=== PATIENT | female | born 1950 | race Caucasian/White ===

== ENCOUNTER 2020-03-07 12:09 | Outpatient (REF) | payer OTHER, SELFPAY ==
[2020-03-07 12:43] LABS: Glucose Urine UA NEG (NEG); Leukocyte Esterase Urine NEG (NEG); Nitrite Urine NEG (NEG); PH 6.5 (5.0-8.0); Specific Gravity - Urine <= 1.005 (1.005-1.025); Urine Blood NEG (NEG); Urine Ketones NEG (NEG); Urine Protein NEG (NEG-TRACE)
[2020-03-07 12:44] LABS: Appearance Urine HAZY; Color Urine YELLOW
[2020-03-07 13:04] LABS: RBC Urine 0 /HPF (0); Squamous Epithelial Cell Urine 1+ /LPF; WBC Urine 0 /HPF (0-4)
[2020-03-07 13:37] LABS: Basophils Percent Auto 0.2 % (0-2); Eosinophils Absolute Auto 0.1 X10*3/uL (0.0-0.4); Eosinophils Percent Auto 1.2 % (0-4); Hematocrit 37.7 % (37-47); Hemoglobin 12.2 g/dl (12.0-16.0); Lymphocytes Absolute Auto 0.6 X10*3/uL (1.2-4.9); MANUAL DIFF FLAG SCAN; Mean Corpuscular HGB Conc 32.4 g/dl (31.0-35.0); Mean Corpuscular Hemoglobin 29.4 pg (27.0-33.0); Mean Corpuscular Volume 90.8 fL (80-98); Mean Platelet Volume 10.2 fL (9.4-12.3); Monocytes Absolute Auto 0.3 X10*3/uL (0.1-1.2); Monocytes Percent Auto 8.2 % (2-11); Neutrophils Absolute Auto 3.2 X10*3/uL (2.0-8.3); Neutrophils Percent Auto 76.4 % (45-73); Platelet Count 240 X10*3/uL (160-400); Red Blood Count 4.15 X10*6/uL (4.20-5.50); Red Cell Distribution Width 13.5 % (11.0-16.0); SCAN SMEAR FLAG 1; White Blood Count 4.1 X10*3/uL (4.8-10.8)
[2020-03-07 14:22] LABS: Alanine Aminotransferase 13 U/L (0-31); Albumin Level 4.4 g/dL (3.5-5.0); Alkaline Phosphatase 65 U/L (39-117); Anion Gap 12 (12-20); Aspartate Amino Transferase 17 U/L (5-31); Bilirubin Total 0.5 mg/dL (0.0-1.0); Blood Urea Nitrogen 15 mg/dL (9-16); Carbon Dioxide 28 mmol/L (22-29); Chloride 101 mmol/L (96-108); Estimated Glomerular Filt Rate > 60; Glucose Random 95 mg/dL (60-115); Potassium 4.6 mmol/l (3.3-5.1); Sodium 136 mmol/L (135-145); Total Protein 6.8 g/dL (6.5-8.0)
[2020-03-07 15:20] LABS: SLIDE REVIEW VERIFIED
[2020-03-08 16:03] LABS: Calcium (PTHI) 9.3 mg/dL (8.6-10.4); PTHI 45 pg/mL (14-64)
== END 2020-03-07 12:10 | disposition home or self-care (01) ==
LOC: HO.LAB 12:09
PROVIDERS: PCP Internal Medicine; Visit Provider Internal Medicine Nephrology
DX: I12.9 Hypertensive chronic kidney disease with stage 1 through stage 4 chronic kidney disease, or unspecified chronic kidney disease (principal); N18.2 Chronic kidney disease, stage 2 (mild)
CPT/HCPCS: 36415; 80053; 81001; 83970; 85025

== ENCOUNTER 2020-04-12 07:51 | Outpatient (REF) | payer OTHER, SELFPAY ==
--- NOTE | 2020-04-12 07:57 | MM_ITS ---
EXAMINATION: BONE DENSITOMETRY CLINICAL INDICATION: Menopausal. COMPARISON: Previous BD dated 04/01/2018 and baseline BD dated 02/16/2008. TECHNIQUE: Using a [employer] DXA System (software version: 13.1) manufactured by [employer], dual-energy x-ray absorptiometry was performed of the lumbar spine and left hip. The images are of good technical quality. Summary results are attached. FINDINGS: AP SPINE L1-L4: Current: BMD 1.334 g/cm2, Z-score 3.0, T-score 1.3, normal, 0.7% decrease from previous, 2.1% decrease from baseline (<5% change is not significant). Prior: BMD 1.343 g/cm2. Baseline: BMD 1.363 g/cm2. LEFT FEMUR, NECK: Current: BMD 1.122 g/cm2, Z-score 2.3, T-score 0.6, normal. Prior: BMD 1.104 g/cm2. Baseline: BMD 1.171 g/cm2. LEFT FEMUR, TOTAL: Current: BMD 1.175 g/cm2, Z-score 2.8, T-score 1.3, normal, 1.0% increase from previous, 4.7% decrease from baseline (<5% change is not significant). Prior: BMD 1.163 g/cm2. Baseline: BMD 1.233 g/cm2. IDENTIFIED RISK FACTORS: Menopause, hysterectomy, bilateral oophorectomy, family history (parental hip fracture). HISTORY OF FRACTURE: None listed. MEDICATIONS: Calcium supplements and multivitamins. MM/XR DEXA axial skeleton IMPRESSION: 1. DIAGNOSIS: Normal bone density based on the lowest T-score value of 0.6 in the femoral neck applying World Health Organization criteria. 2. 10-YEAR FRACTURE RISK PREDICTION, FRAX: Major osteoporotic fracture (clinical spine, forearm, hip or shoulder) 10.6%. Hip fracture 0.3%. 3. Treatment Recommendations: NOF guidelines recommend consideration for treatment in postmenopausal women and men age 50 and older presenting with the following: -A hip or vertebral (clinical or morphometric) fracture. -T-score less than or equal to -2.5 at the femoral neck or spine after appropriate evaluation to exclude secondary causes. -Low bone mass at the hip or spine and a 10-year fracture probability by FRAX of greater than or equal to 3% for hip fracture or greater than or equal to 20% for major osteoporotic fracture based on the [place] adapted WHO algorithm. 4. Other Recommendations: All treatment decisions require clinical judgment and consideration of individual patient factors, including patient preferences, comorbidities, previous drug use, risk factors not captured in the FRAX model (e.g. frailty, falls, vitamin D deficiency, increased bone turnover, interval significant decline in bone density) and possible under or overestimation of fracture risk by FRAX. FUTURE SCAN RECOMMENDATION: People with diagnosed cases of osteoporosis or at high risk for fracture should have regular bone mineral density tests. For patients eligible for Medicare, routine testing is allowed once every 2 years. The testing frequency can be increased to one year for patients who have rapidly progressing disease, those who are receiving or discontinuing medical therapy to restore bone mass, or have additional risk factors.
--- NOTE | 2020-04-12 07:57 | MM_ITS ---
EXAMINATION: MM SCREENING DIGITAL BREAST TOMOSYNTHESIS, BILATERAL CLINICAL INFORMATION: Left breast cancer 2001 status post lumpectomy. Due for yearly exam. COMPARISON: Mammography: 04/07/2019, 04/01/2018, 03/30/2017 TECHNIQUE: Digital breast tomosynthesis is performed in both the craniocaudal and mediolateral oblique views along with computer-aided detection (CAD). Synthesized 2D images are generated from the tomosynthesis. Additional exaggerated left CC view is provided. FINDINGS: The breasts are heterogeneously dense, which may obscure small masses (ACR BI-RADS breast composition Category c). There is fibronodular parenchymal pattern similar to prior studies. There is no developing density or interval mass or architectural abnormality. Again, there are post therapy changes on left with mild reduced breast size and stable scarring. There are no abnormal calcifications. No significant changes. MM/MM tomosynthesis screening BI IMPRESSION: No mammographic evidence of malignancy. Post therapy changes left breast, stable. ASSESSMENT: BI-RADS 2: Benign RECOMMENDATION: Routine annual mammography screening. This patient's information was entered into a reminder system with a target due date for their next mammogram.
== END 2020-04-12 07:52 | disposition home or self-care (01) ==
LOC: HO.MAMMO 07:51
PROVIDERS: PCP Internal Medicine; Visit Provider Internal Medicine
DX: Z13.820 Encounter for screening for osteoporosis (principal); N95.9 Unspecified menopausal and perimenopausal disorder; Z90.710 Acquired absence of both cervix and uterus; Z90.722 Acquired absence of ovaries, bilateral; Z12.31 Encounter for screening mammogram for malignant neoplasm of breast; Z85.3 Personal history of malignant neoplasm of breast
CPT/HCPCS: 77063; 77067; 77080

== ENCOUNTER 2020-05-28 09:21 | Outpatient (REF) | payer OTHER, SELFPAY ==
[2020-05-28 10:03] LABS: MANUAL DIFF FLAG NO
[2020-05-28 10:10] LABS: Basophils Percent Auto 0.3 % (0-2); Eosinophils Absolute Auto 0.1 X10*3/uL (0.0-0.4); Eosinophils Percent Auto 1.8 % (0-4); Hematocrit 38.4 % (37-47); Hemoglobin 12.8 g/dl (12.0-16.0); Imm Gran Abs Auto 0.01 X10*3/uL (0.00-0.03); Imm Gran Pct Auto 0.3 % (0.0-0.4); Lymphocytes Absolute Auto 0.8 X10*3/uL (1.2-4.9); Lymphocytes Percent Auto 22.9 % (20-40); Mean Corpuscular HGB Conc 33.3 g/dl (31.0-35.0); Mean Corpuscular Hemoglobin 29.2 pg (27.0-33.0); Mean Corpuscular Volume 87.5 fL (80-98); Mean Platelet Volume 9.8 fL (9.4-12.3); Monocytes Absolute Auto 0.3 X10*3/uL (0.1-1.2); Monocytes Percent Auto 8.4 % (2-11); Neutrophils Absolute Auto 2.2 X10*3/uL (2.0-8.3); Neutrophils Percent Auto 66.3 % (45-73); Platelet Count 246 X10*3/uL (160-400); Red Blood Count 4.39 X10*6/uL (4.20-5.50); White Blood Count 3.3 X10*3/uL (4.8-10.8)
[2020-05-28 10:37] LABS: Alanine Aminotransferase 17 U/L (0-31); Albumin Level 4.5 g/dL (3.5-5.0); Alkaline Phosphatase 79 U/L (39-117); Anion Gap 12 (12-20); Aspartate Amino Transferase 22 U/L (5-31); Bilirubin Total 0.6 mg/dL (0.0-1.0); Blood Urea Nitrogen 9 mg/dL (9-16); Calcium 9.4 mg/dL (8.4-10.2); Carbon Dioxide 30 mmol/L (22-29); Chloride 102 mmol/L (96-108); Cholesterol 180 mg/dL; Estimated Glomerular Filt Rate > 60; Glucose Random 94 mg/dL (60-115); HDL Cholesterol 75 mg/dL; LDL Cholesterol Calculated 94 mg/dl; Potassium 4.2 mmol/L (3.3-5.1); Sodium 140 mmol/L (135-145); Triglycerides 56 mg/dL
[2020-05-28 10:59] LABS: Free T4 (Free Thyroxine) 0.91 ng/dL (0.71-1.85); Thyroid Stimulating Hormone 1.13 uIU/mL (0.32-4.0); Vitamin D 25-OH Total 26.4 ng/mL (>30)
[2020-05-28 11:09] LABS: Folate 15.2 ng/mL (> or = 4.0); Vitamin B12 244 pg/mL (200-900)
== END 2020-05-28 09:22 | disposition home or self-care (01) ==
LOC: HO.LAB 09:21
PROVIDERS: PCP Internal Medicine; Visit Provider Internal Medicine
DX: I10 Essential (primary) hypertension (principal); E78.00 Pure hypercholesterolemia, unspecified
CPT/HCPCS: 36415; 80053; 80061; 82306; 82607; 82746; 84439; 84443; 85025

== ENCOUNTER 2021-04-18 08:47 | Outpatient (REF) | payer OTHER, SELFPAY ==
--- NOTE | ~2021-04-18 | MM_ITS ---
EXAMINATION: MM SCREENING DIGITAL BREAST TOMOSYNTHESIS, BILATERAL CLINICAL INFORMATION: Status post left breast lumpectomy deep upper outer aspect. COMPARISON: Mammography: 04/12/2020 and studies dating back to 02/07/2012 TECHNIQUE: Digital breast tomosynthesis is performed in both the craniocaudal and mediolateral oblique views along with computer-aided detection (CAD). Synthesized 2-D images are generated from the tomosynthesis. Additional exaggerated craniocaudal view performed. FINDINGS: The breasts are heterogeneously dense, which may obscure small masses (ACR BI-RADS breast composition Category c). There is a stable parenchymal pattern of the left breast with postsurgical change and no evidence of new abnormal dominant mass or suspicious grouping of microcalcifications. Within the superior central aspect of the right breast, there is a new grouping of calcifications for which spot magnification views are recommended. MM/MM tomosynthesis screening BI IMPRESSION: New calcifications superior central aspect of the right breast for which spot magnification views in craniocaudal and 90-degree mediolateral views is recommended. ASSESSMENT: BI-RADS 0: Incomplete - Need Additional Imaging Evaluation. RECOMMENDATION: 1. Additional views of the right breast. 2. Targeted ultrasound if warranted after review of the additional views. 3. Radiology department staff will contact the patient for additional imaging.
== END 2021-04-18 08:48 | disposition home or self-care (01) ==
LOC: HO.MAMMO 08:47
PROVIDERS: PCP Internal Medicine; Visit Provider Internal Medicine
DX: Z12.31 Encounter for screening mammogram for malignant neoplasm of breast (principal)
CPT/HCPCS: 77063; 77067

== ENCOUNTER 2021-04-24 08:47 | Outpatient (REF) | payer OTHER, SELFPAY ==
--- NOTE | ~2021-04-24 | MM_ITS ---
EXAMINATION: MM DIAGNOSTIC DIGITAL MAMMOGRAPHY, RIGHT CLINICAL INFORMATION: Recall from screening for new tightly grouped calcification central right breast mid depth. History contralateral left breast cancer status post lumpectomy 2000. COMPARISON: Mammography: 04/18/2021, 04/12/2020, 04/07/2019 TECHNIQUE: Digital mammography is performed in the following views: Magnification CC, magnification ML FINDINGS: The breasts are heterogeneously dense, which may obscure small masses (ACR BI-RADS breast composition Category c). The additional magnification views demonstrate very tight group of relatively coarse benign-appearing calcifications central right breast mid depth, approximately 5 in number. Calcifications will be reassessed again in 6 months to include magnification views. Results are discussed with the patient at time of visit. MM/MM added views RT IMPRESSION: Tight group of benign-appearing calcifications central right breast mid depth. ASSESSMENT: BI-RADS 3: Probably Benign RECOMMENDATION: Diagnostic right mammography in 6 months. This patient's information was entered into a reminder system with a target due date for their next mammogram.
== END 2021-04-24 08:48 | disposition home or self-care (01) ==
LOC: HO.MAMMO 08:47
PROVIDERS: PCP Internal Medicine; Visit Provider Internal Medicine
DX: R92.1 Mammographic calcification found on diagnostic imaging of breast (principal)
CPT/HCPCS: 77065

== ENCOUNTER 2021-05-06 08:41 | Outpatient (REF) | payer OTHER, SELFPAY ==
[2021-05-06 09:09] LABS: MANUAL DIFF FLAG NO
[2021-05-06 09:32] LABS: Basophils Percent Auto 0.3 % (0-2); Eosinophils Percent Auto 1.3 % (0-4); Hematocrit 37.4 % (37.0-47.0); Hemoglobin 12.5 g/dl (12.0-16.0); Imm Gran Abs Auto 0.01 X10*3/uL (0.00-0.03); Imm Gran Pct Auto 0.3 % (0.0-0.4); Immature Retic Fraction 5.8 % (3.0-15.9); Lymphocytes Absolute Auto 0.6 X10*3/uL (1.2-4.9); Mean Corpuscular HGB Conc 33.4 g/dl (31.0-35.0); Mean Corpuscular Hemoglobin 28.5 pg (27.0-33.0); Mean Corpuscular Volume 85.2 fL (80.0-98.0); Mean Platelet Volume 9.8 fL (9.4-12.3); Monocytes Absolute Auto 0.2 X10*3/uL (0.1-1.2); Monocytes Percent Auto 7.9 % (2-11); Neutrophils Absolute Auto 2.1 x10*3/uL (2.0-8.3); Neutrophils Percent Auto 69.2 % (45-73); Platelet Count 208 X10*3/uL (160-400); Red Blood Count 4.39 X10*6/uL (4.20-5.50); Red Cell Distribution Width 13.2 % (11.0-16.0); Retic HGB Equivalent 32.3 pg (30.0-35.0); Reticulocyte Percent 0.9 % (0.5-1.8); Reticulocytes Absolute 0.041 X10*6/uL (0.026-0.095); White Blood Count 3.1 X10*3/uL (4.8-10.8)
[2021-05-06 09:33] LABS: Appearance Urine CLEAR; Color Urine YELLOW; Glucose Urine UA NEG (NEG); Leukocyte Esterase Urine NEG (NEG); Nitrite Urine NEG (NEG); Urine Blood TRACE (NEG); Urine Ketones NEG (NEG); Urine Protein NEG (NEG-TRACE)
[2021-05-06 09:56] LABS: Alanine Aminotransferase 14 U/L (0-31); Anion Gap 11 (12-20); Aspartate Amino Transferase 18 U/L (5-31); Bilirubin Total 0.4 mg/dL (0.0-1.0); Blood Urea Nitrogen 12 mg/dL (9-16); Calcium 9.6 mg/dL (8.4-10.2); Carbon Dioxide 27 mmol/L (22-29); Chloride 105 mmol/L (96-108); Estimated Glomerular Filt Rate > 60; Glucose Random 101 mg/dL (60-115); Potassium 4.4 mmol/L (3.3-5.1); Sodium 139 mmol/L (135-145)
[2021-05-06 09:57] LABS: Albumin Level 4.3 g/dL (3.5-5.0); Alkaline Phosphatase 76 U/L (39-117); Cholesterol 186 mg/dL; HDL Cholesterol 63 mg/dL; LDL Cholesterol Calculated 109 mg/dl; Total Protein 6.7 g/dL (6.5-8.0); Triglycerides 70 mg/dL
[2021-05-06 10:08] LABS: WBC Urine 0-2 /HPF (0-4)
[2021-05-06 10:09] LABS: Bacteria Urine TRACE /LPF; Squamous Epithelial Cell Urine 1+ /LPF
[2021-05-06 10:20] LABS: Free T4 (Free Thyroxine) 0.85 ng/dL (0.71-1.85); Thyroid Stimulating Hormone 1.37 uIU/mL (0.32-4.0); Vitamin D 25-OH Total 16.9 ng/mL (>30)
[2021-05-06 10:32] LABS: Folate 10.6 ng/mL (> or = 4.0); Vitamin B12 274 pg/mL (200-900)
[2021-05-07 12:07] LABS: Calcium (PTHI) 9.2 mg/dL (8.6-10.4); PTHI 46 pg/mL (14-64)
== END 2021-05-06 08:42 | disposition home or self-care (01) ==
LOC: HO.LAB 08:41
PROVIDERS: Absent Provider Internal Medicine Nephrology; PCP Internal Medicine; Visit Provider Internal Medicine
DX: N18.2 Chronic kidney disease, stage 2 (mild) (principal); E78.00 Pure hypercholesterolemia, unspecified
CPT/HCPCS: 36415; 80053; 80061; 81001; 82306; 82607; 82746; 83970; 84439; 84443; 85025; 85045

== ENCOUNTER 2021-06-11 07:23 | Outpatient (REF) | payer OTHER, SELFPAY ==
--- NOTE | ~2021-06-11 | XR_ITS ---
EXAMINATION: XR HIP, LEFT CLINICAL INFORMATION: Left hip pain. COMPARISON: None TECHNIQUE: 2 views of the left hip. AP pelvis. FINDINGS: AP pelvis and 2 views of left hip reveal normal symmetry of both hip joints and SI joints. The pelvic bones are unremarkable. The soft tissues are normal. Small phleboliths are seen in the pelvis. The left hip joint space is maintained normal. No visible acute fracture, dislocation or subluxation seen. XR/XR hip LT w PEL1V IMPRESSION: Unremarkable left hip and AP pelvis exam.
== END 2021-06-11 07:24 | disposition home or self-care (01) ==
LOC: HO.HOSX 07:23
PROVIDERS: Visit Provider Physician Assistant
DX: M25.552 Pain in left hip (principal)
CPT/HCPCS: 73502

== ENCOUNTER 2021-08-28 09:00 | Outpatient (RCR) | payer OTHER, SELFPAY ==
[2021-06-25 08:10] VITALS: BP 146/92; PULSE 77
--- NOTE | 2021-06-25 13:30 | MHC.PT.EP ---
[facility] [place] Office [place] Office [place] Office [address] Jay Evans [address] [phone] F: [phone] F: [phone] F: [phone] F: [phone] Physical Therapy Plan of Care Date of Evaluation: Date of Surgery: Diagnosis: LUMBAR RADICULOPATHY Assessment: 70 YO FEMALE REF TO PT FOR LUMBAR W LEFT RADICULOPATHY INTO GLUTE SINCE 11/2020 AFTER PERF EXERCISES AT HOME. SHE HAS LIMITATIONS WITH TRUNK/ HIP AROM AND SOFT TISSUE MOBILITY RESTRICTIONS(ESPEC POSTERIOR CHAIN), STRENGTH DEFICITS IN PROX LEs AND LUMBOPELVIC REGION, AND MILD SI Jt DYSFUNCTION. Pt'S FUNCTIONAL LIMITATIONS INCLUDE DIFFIC W EXER, CERTAIN MOTIONS (GETTING UP FROM FLOOR), ASCENDING STAIRS, AND PROLONGED STANDING. . Pt IS A VERY GOOD PT CANDIDATE , ADDRESSING THE ABOVE FINDINGS, PAIN MGMT, AND MAXIMIZING FUNCTIONAL INDEPENDENCE. Frequency and Duration: The patient will be seen 1 x WK x 5 WKS Short Term Goals: *Pt'S LBP DECR TO 2-3/10 IN 2 WKS *Pt DEMON WFL AROM / FLEXIB IN AMIE HIP ROTAT / HS IN 2 WKS * Pt DEMON PROPER FUNCT SQUAT AND POSTURAL SELF-CORRECT TECHN IN 2 WKS Skilled Nursing Goals: *Pt SIMUL 3:3 ADLs /HOUSE TASKS W PROPER MECHANICS IN 5 WKS *Pt DEMON IMPROVED CORE STAB/ STRENGTH EVIDENT IN IMPROVED OSWESTRY SCORE BY 3-5 POINTS (7/50 AT EVAL) IN 5 WKS *Pt INDEP W HEP, PROGRESSIVE STRENGTHENING, AND SELF-SX MGMT STRATEGIES IN 5 WKS Treatment Plan: Modalities to reduce pain, spasms and effusion. Manual therapy to restore motion and function. Therapeutic exercise to improve strength and flexibility. Neuromuscular re-education for posture and balance. Therapeutic activities to return to functional activities of daily living. Electronically signed by: Pilar RoyPT Please sign and return to therapist. Thank you for your referral.
--- NOTE | 2021-08-28 09:55 | MHC.PT.DC ---
[facility] [place] Office [place] Office [place] Office [address] Jay Evans [address] [phone] F: [phone] F: [phone] F: [phone] F: [phone] Physical Therapy Discharge Report Diagnosis: LUMBAR RADICULOPATHY Date of Surgery: Date of Evaluation: 06/25/21 Date of Discharge: Treatments to Date: 7 Cancellations to Date: No Shows to Date: Discharge Status: Discharge Summary: Pt PROGRESSED VERY WELL IN PT- SHE IS MOTIOVATED AND COMPLIANT W HEP, HER LEFT LE/ HIP SXS HAVE RESOLVED. Pt DEMON VERY GOOD FUNCT MOB WITH GAIT, TRANSFERS, AND HIGHER LEVEL TASKS. HER STRENGTH HAS IMPROVED, OSWESTRY SCORE IMPROVED, WELL HER OVERALL FLEXIBILITY. Pt PLEASED W HER PROGRESS AND IS D/C'D THIS DATE W PROGR HEP. Electronically signed by: Please sign and return to therapist. Thank you for your referral.
== END 2021-08-28 09:56 | disposition home or self-care (01) ==
LOC: HO.PT 09:00
PROVIDERS: PCP Internal Medicine; Visit Provider Physician Assistant
DX: M54.16 Radiculopathy, lumbar region (principal)
CPT/HCPCS: 97110; 97112; 97140; 97161

== ENCOUNTER 2021-10-01 13:41 | Outpatient (REF) | payer OTHER, SELFPAY ==
--- NOTE | ~2021-10-01 | MM_ITS ---
EXAMINATION: MM DIAGNOSTIC DIGITAL BREAST TOMOSYNTHESIS, RIGHT CLINICAL INFORMATION: Short interval six-month follow-up probable benign tightly grouped of calcifications central mid right breast. History contralateral left breast cancer status post lumpectomy, 2000. COMPARISON: Mammography: 12/22/2021, 04/18/2021, 04/12/2020 TECHNIQUE: Digital breast tomosynthesis is performed in both the craniocaudal and mediolateral oblique views along with computer-aided detection (CAD). Synthesized 2D images are generated from the tomosynthesis. Additional magnification CC and magnification ML views are obtained. FINDINGS: The breasts are heterogeneously dense, which may obscure small masses (ACR BI-RADS breast composition Category c). There is fibronodular parenchymal pattern. The calcifications for follow-up are similar to prior diagnostic exam, tightly grouped, and possibly related to underlying fibroadenomatous change. Calcifications will be reassessed again at time of annual bilateral mammography, due in 6 months. Results are discussed with the patient at time of visit. MM/MM tomosynthesis diagnostic RT IMPRESSION: No significant change in tightly grouped probable benign calcifications central upper right breast. ASSESSMENT: BI-RADS 3: Probably Benign RECOMMENDATION: Diagnostic mammography at time of annual exam, due in 6 months. This patient's information was entered into a reminder system with a target due date for their next mammogram.
== END 2021-10-01 13:42 | disposition home or self-care (01) ==
LOC: HO.MAMMO 13:41
PROVIDERS: PCP Internal Medicine; Visit Provider Internal Medicine
DX: R92.1 Mammographic calcification found on diagnostic imaging of breast (principal)
CPT/HCPCS: 77061; 77065

== ENCOUNTER 2022-03-19 11:56 | Outpatient (REF) | payer OTHER, SELFPAY ==
--- NOTE | ~2022-03-19 | XR_ITS ---
EXAMINATION: XR LUMBOSACRAL SPINE CLINICAL INFORMATION: Radiculopathy, lumbar region. COMPARISON: None TECHNIQUE: Three views of the lumbosacral spine. FINDINGS: There are 5 nonrib-bearing lumbar vertebra. No acute fracture, spondylolisthesis, or spondylolysis is appreciated. There is some mild narrowing of the L4-L5 and L5-S1 disc spaces. There is facet arthropathy seen bilaterally at the L4-L5 level. There is articulation of the right L5 transverse process with the right sacrum with mild sclerosis. XR/XR lumbar spine 2-3V IMPRESSION: Lumbar spondylosis L4 through S1 without acute fracture, spondylolisthesis, or spondylolysis identified.
== END 2022-03-19 11:57 | disposition home or self-care (01) ==
LOC: HO.XRAY 11:56
PROVIDERS: PCP Internal Medicine; Visit Provider Nurse Practitioner Family
DX: M54.16 Radiculopathy, lumbar region (principal)
CPT/HCPCS: 72100

== ENCOUNTER 2022-04-03 12:41 | Outpatient (REF) | payer OTHER, SELFPAY ==
--- NOTE | ~2022-04-03 | MM_ITS ---
EXAMINATION: MM DIAGNOSTIC DIGITAL BREAST TOMOSYNTHESIS, BILATERAL CLINICAL INFORMATION: Due for yearly. Also follow-up probable benign tightly grouped calcifications central mid right breast. Prior history contralateral left breast cancer post lumpectomy, 2000. COMPARISON: Mammography: 10/01/2021, 04/24/2021, 04/18/2021 (BI-RADS 0, 04/12/2020, 04/07/2019, 04/01/2018 TECHNIQUE: Digital breast tomosynthesis is performed in both the craniocaudal and mediolateral oblique views along with computer-aided detection (CAD). Synthesized 2D images are generated from the tomosynthesis. Additional magnification right CC and magnification right ML views are obtained. FINDINGS: The breasts are heterogeneously dense, which may obscure small masses (ACR BI-RADS breast composition Category c). Fibronodular parenchymal pattern is again seen with post therapy changes on the left with mild reduced breast size and stable scarring. Neither breast shows interval dominant nodule or significant mass, architectural abnormality, or developing density. Right breast calcifications for follow-up central mid breast are tightly grouped round and benign-appearing. No changes from recent prior diagnostic studies. Calcifications will be reassessed again at time of annual bilateral mammography to conclude long-term surveillance, due in 12 months. Results are discussed with the patient at time of visit. MM/MM tomosynthesis diagnostic BI IMPRESSION: Right: -Probable benign calcifications central mid breast, stable. Left: -No mammographic evidence of malignancy. ASSESSMENT: BI-RADS 3: Probably Benign RECOMMENDATION: Diagnostic mammography at time of next annual exam, due in 12 months. This patient's information was entered into a reminder system with a target due date for their next mammogram.
== END 2022-04-03 12:42 | disposition home or self-care (01) ==
LOC: HO.MAMMO 12:41
PROVIDERS: Visit Provider Internal Medicine
DX: R92.1 Mammographic calcification found on diagnostic imaging of breast (principal)
CPT/HCPCS: 77062; 77066

== ENCOUNTER 2022-04-16 07:48 | Outpatient (REF) | payer OTHER, SELFPAY ==
--- NOTE | ~2022-04-16 | MM_ITS ---
EXAMINATION: BONE DENSITOMETRY CLINICAL INDICATION: Osteoporosis. COMPARISON: Previous BD dated 04/12/2020 and baseline BD dated 02/16/2008. TECHNIQUE: Using a [employer] DXA System (software version: 13.1) manufactured by [employer], dual-energy x-ray absorptiometry was performed of the lumbar spine and left hip. The images are of good technical quality. Summary results are attached. FINDINGS: AP SPINE L1-L4: Current: BMD 1.311 g/cm2, Z-score 2.8, T-score 1.1, normal, 1.7% decrease from previous, 3.8% decrease from baseline (<5% change is not significant). Prior: BMD 1.334 g/cm2. Baseline: BMD 1.363 g/cm2. LEFT FEMUR, NECK: Current: BMD 1.154 g/cm2, Z-score 2.6, T-score 0.8, normal. Prior: BMD 1.146 g/cm2. Baseline: BMD 1.171 g/cm2. LEFT FEMUR, TOTAL: Current: BMD 1.177 g/cm2, Z-score 2.8, T-score 1.3, normal, 0.6% increase from previous, 4.5% decrease from baseline (<5% change is not significant). Prior: BMD 1.170 g/cm2. Baseline: BMD 1.233 g/cm2. IDENTIFIED RISK FACTORS: Menopause, height loss, hysterectomy, low calcium intake, family history (parent hip fracture), bilateral oophorectomy. HISTORY OF FRACTURE: None listed. MEDICATIONS: Calcium/multivitamin. MM/XR DEXA axial skeleton IMPRESSION: 1. DIAGNOSIS: Normal bone density based on the lowest T-score value of 0.8 in the femoral neck applying World Health Organization criteria. 2. 10-YEAR FRACTURE RISK PREDICTION, FRAX: According to the guidelines, FRAX calculation should only be performed on patients in the osteopenia bone density category. Therefore, FRAX was not performed on this patient. 3. Treatment Recommendations: NOF guidelines recommend consideration for treatment in postmenopausal women and men age 50 and older presenting with the following: -A hip or vertebral (clinical or morphometric) fracture. -T-score less than or equal to -2.5 at the femoral neck or spine after appropriate evaluation to exclude secondary causes. -Low bone mass at the hip or spine and a 10-year fracture probability by FRAX of greater than or equal to 3% for hip fracture or greater than or equal to 20% for major osteoporotic fracture based on the [place] adapted WHO algorithm. 4. Other Recommendations: All treatment decisions require clinical judgment and consideration of individual patient factors, including patient preferences, comorbidities, previous drug use, risk factors not captured in the FRAX model (e.g. frailty, falls, vitamin D deficiency, increased bone turnover, interval significant decline in bone density) and possible under or overestimation of fracture risk by FRAX. FUTURE SCAN RECOMMENDATION: People with diagnosed cases of osteoporosis or at high risk for fracture should have regular bone mineral density tests. For patients eligible for Medicare, routine testing is allowed once every 2 years. The testing frequency can be increased to one year for patients who have rapidly progressing disease, those who are receiving or discontinuing medical therapy to restore bone mass, or have additional risk factors.
== END 2022-04-16 07:49 | disposition home or self-care (01) ==
LOC: HO.MAMMO 07:48
PROVIDERS: PCP Internal Medicine; Visit Provider Internal Medicine
DX: Z13.820 Encounter for screening for osteoporosis (principal); M81.0 Age-related osteoporosis without current pathological fracture; Z78.0 Asymptomatic menopausal state
CPT/HCPCS: 77080

== ENCOUNTER 2022-05-10 08:08 | Outpatient (REF) | payer OTHER, SELFPAY ==
[2022-05-10 08:27] LABS: MANUAL DIFF FLAG NO
[2022-05-10 08:43] LABS: Basophils Percent Auto 0.5 % (0-2); Eosinophils Absolute Auto 0.1 X10*3/uL (0.0-0.4); Eosinophils Percent Auto 1.9 % (0-4); Hematocrit 37.4 % (37.0-47.0); Hemoglobin 12.2 g/dl (12.0-16.0); Imm Gran Abs Auto 0.01 X10*3/uL (0.00-0.03); Imm Gran Pct Auto 0.3 % (0.0-0.4); Lymphocytes Absolute Auto 0.9 X10*3/uL (1.2-4.9); Lymphocytes Percent Auto 25.4 % (20-40); Mean Corpuscular HGB Conc 32.6 g/dl (31.0-35.0); Mean Corpuscular Hemoglobin 28.9 pg (27.0-33.0); Mean Corpuscular Volume 88.6 fL (80.0-98.0); Mean Platelet Volume 9.7 fL (9.4-12.3); Monocytes Absolute Auto 0.3 X10*3/uL (0.1-1.2); Monocytes Percent Auto 7.9 % (2-11); Neutrophils Absolute Auto 2.3 x10*3/uL (2.0-8.3); Platelet Count 230 X10*3/uL (160-400); Red Blood Count 4.22 X10*6/uL (4.20-5.50); Red Cell Distribution Width 13.2 % (11.0-16.0); White Blood Count 3.7 X10*3/uL (4.8-10.8)
[2022-05-10 09:22] LABS: Alanine Aminotransferase 12 U/L (0-31); Albumin Level 4.3 g/dL (3.5-5.0); Alkaline Phosphatase 70 U/L (39-117); Anion Gap 11 (12-20); Aspartate Amino Transferase 18 U/L (5-31); Bilirubin Total 0.6 mg/dL (0.0-1.0); Blood Urea Nitrogen 12 mg/dL (9-16); Calcium 9.1 mg/dL (8.4-10.2); Carbon Dioxide 27 mmol/L (22-29); Chloride 106 mmol/L (96-108); Cholesterol 218 mg/dL; Estimated Glomerular Filt Rate > 60; Glucose Random 96 mg/dL (60-115); HDL Cholesterol 67 mg/dL; LDL Cholesterol Calculated 137 mg/dl; Potassium 4.8 mmol/L (3.3-5.1); Sodium 139 mmol/L (135-145); Total Protein 6.4 g/dL (6.5-8.0); Triglycerides 74 mg/dL
[2022-05-10 09:55] LABS: Folate 9.6 ng/mL (> or = 4.0); Free T4 (Free Thyroxine) 0.86 ng/dL (0.71-1.85); Thyroid Stimulating Hormone 0.99 uIU/mL (0.32-4.0); Vitamin B12 186 pg/mL (200-900)
== END 2022-05-10 08:09 | disposition home or self-care (01) ==
LOC: HO.LAB 08:08
PROVIDERS: PCP Internal Medicine; Visit Provider Internal Medicine
DX: E78.00 Pure hypercholesterolemia, unspecified (principal)
CPT/HCPCS: 36415; 80053; 80061; 82306; 82607; 82746; 84439; 84443; 85025

== ENCOUNTER 2022-05-14 09:00 | Outpatient (RCR) | payer OTHER, SELFPAY ==
--- NOTE | 2022-04-18 12:58 | MHC.PT.EP ---
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 OBJECTIVE FINDINGS: DECR POSTURE, HYPOMOBILE LUMBAR/ LUMBOPELVIC REGION; DECR FLEXIB IN Rt LE, (+) TISSUE TENSION IN Lt > Rt LS, AND PAIN IN HER Lt GLUTE/ PIRIFORMIS W RADIC INTO Lt LE L4/5 DERMATOME. SHE HAS EVIDENCE OF LUMBAR SPONDYLOSIS ON XR. Pt IS LIMITED W SLEEP, SITTING, WALKING, PHYSICALLY DEMANDING ADLs- SHE WOULD BENEFIT FROM PT TO ADDRESS HER LUMBOPELVIC HYPOMIB, EASE TISSUE TENSION, AND DEV HEP. Frequency and Duration: The patient will be seen 1 x WK x 8 WKS (Pt REQUEST) Short Term Goals: *DECR Pt'S LEFT LS PAIN TO 2-3/10 AND Lt LE RADIC SXS DECR BY 75% *IMPROVE Pt'S HIP IR AMIE AND Lt HS FLEXIB *Pt DEMON IMPROVED BODY MECH W 3:3 SIMUL ADLs Fdc Goals: *Pt INDEP W PROGR HEP AND SELF-SX MGMT TECHN *Pt IMPROVE LUMBOPELVIC STAB AND PROX LEs STRENGTH TO ALLOW HER TO RESUME HER FITNESS/ REG ACTIVITIES *Pt DEMON PROPER FUNCTIONAL SQUAT Treatment Plan: Modalities to reduce pain, spasms and effusion. Manual therapy to restore motion and function. Therapeutic exercise to improve strength and flexibility. Neuromuscular re-education for posture and balance. Therapeutic activities to return to functional activities of daily living. Electronically signed by: PRIYA SANDERS,PT Please sign and return to therapist. Thank you for your referral.
--- NOTE | 2022-06-25 07:55 | MHC.PT.DC ---
[facility] [place] [facility] [place] [facility] [place] Office [address] Jay Evans [address] [phone] F: [phone] F: [phone] F: [phone] F: [phone] Physical Therapy Discharge Report Diagnosis: RADICULOPATHY, LUMBAR REGION Date of Surgery: Date of Evaluation: 04/18/22 Date of Discharge: 06/25/22 Treatments to Date: 5 Cancellations to Date: 0 No Shows to Date: 0 Discharge Status: Recommend MD Follow-up Discharge Summary: IN PT WE INITIATED GENTLE PROGRESSIVE LUMBOPELVIC STABILIZATION EXER AND HIP STABILIZATION EXER- THE Pt BENEFITTED FROM EDUC RE SELF-PACING EXER AND ADLs, AND REVIEW OF BODY MECH TO REDUCE FURTHER STRESS ON HER LS REGION. THE Pt ATTENDED 5 PT SESSIONS AND HER SXS DID NOT REMAIN CENTRALIZED- AT THIS TIME, WE DISCUSSED AND Pt AGREED TO D/C PT AND REF BACK TO HER MD. Electronically signed by: PRIYA SANDERS,PT Please sign and return to therapist. Thank you for your referral.
== END 2022-06-25 07:56 | disposition home or self-care (01) ==
LOC: HO.PT 09:00
PROVIDERS: PCP Internal Medicine; Visit Provider Nurse Practitioner Family
DX: M54.16 Radiculopathy, lumbar region (principal)
CPT/HCPCS: 97110; 97140; 97162

== ENCOUNTER 2022-05-22 07:15 | Outpatient (REF) | payer OTHER, SELFPAY ==
--- NOTE | ~2022-05-22 | MR_ITS ---
EXAMINATION: MR LUMBAR SPINE WITHOUT CONTRAST CLINICAL INFORMATION: Left lower extremity radiculopathy COMPARISON: None TECHNIQUE: MRI of the lumbar spine was obtained using routine sequences without contrast. 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 Trace anterolisthesis of L4 on L5.. No suspicious marrow signal or focal osseous lesion. Small L1 superior endplate Schmorl's node The vertebral body heights are maintained. Mild multilevel degenerative disc desiccation and height loss, sparing L1-L2. The conus medullaris terminates at the level of L1. The distal spinal cord is normal in appearance. The cauda equina nerve roots appear normal. No significant abnormalities of the paraspinal musculature.. 9 mm T2 hypointense lesion in the right kidney (series 6 image 3). Small left renal cyst. The abdominal aorta is of normal contour and caliber. SPINAL LEVELS: T12-L1: Small central disc protrusion and mild facet arthropathy. L1-L2: No significant spinal canal or neuroforaminal narrowing. L2-L3: No significant spinal canal or neuroforaminal narrowing. Shallow disc bulge and mild facet arthropathy. L3-L4: Shallow left eccentric disc bulge and mild facet arthropathy. No significant spinal canal stenosis. Mild left neural foraminal narrowing. L4-L5: Anterolisthesis with posterior disc uncovering. Right greater than left facet arthropathy. Left greater than right foraminal disc protrusions. No significant central spinal canal stenosis. Mild bilateral neural foraminal narrowing L5-S1: Central and left subarticular disc protrusion narrows the right subarticular zone and compresses the left S1 nerve root in the left subarticular zone. Moderate facet arthropathy. No significant central spinal canal stenosis or neural foraminal narrowing. MR/MR lumbar spine wo con IMPRESSION: 1. 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 2. At L5-S1, a central and left subarticular disc protrusion compresses the left S1 nerve root in the subarticular zone. 3. Additional mild degenerative changes of the lumbar spine without significant central spinal canal stenosis or high-grade neural foraminal narrowing. 4. 9 mm T2 hypointense lesion in the right kidney is nonspecific but may represent a hemorrhagic or proteinaceous cyst. Recommend further evaluation with renal ultrasound.
== END 2022-05-22 07:16 | disposition home or self-care (01) ==
LOC: HO.MRI 07:15
PROVIDERS: PCP Internal Medicine; Visit Provider Internal Medicine
DX: M54.16 Radiculopathy, lumbar region (principal)
CPT/HCPCS: 72148

== ENCOUNTER 2022-06-02 13:16 | Outpatient (REF) | payer OTHER, SELFPAY ==
--- NOTE | ~2022-06-02 | US_ITS ---
EXAMINATION: US RETROPERITONEAL LIMITED (RENAL ONLY) CLINICAL INFORMATION: Cyst of kidney, acquired. COMPARISON: X-ray abdomen KUB 06/25/2016. TECHNIQUE: Real-time imaging of the kidneys. FINDINGS: RIGHT KIDNEY: 10.4 x 4.2 x 4.6 cm (SAG x AP x TRV). The kidney is normal in size, contour, and echogenicity. Renal cortical thickness is normal. No calculi or focal parenchymal lesions. No hydronephrosis. Scattered hyperechoic foci in the renal fat, likely vascular calcifications. LEFT KIDNEY: 9.5 x 5.3 x 4.0 cm (SAG x AP x TRV). The kidney is normal in size, contour, and echogenicity. Renal cortical thickness is normal. No calculi or focal parenchymal lesions. No hydronephrosis. Scattered hyperechoic foci in the renal fat, likely vascular calcifications. US/US renal BI IMPRESSION: No discrete sonographic abnormality to correlate with the 9 mm T2 hypointense lesion in the right kidney noted on MRI from 05/22/2022. Recommend correlation with an abdominal MRI with and without IV contrast, renal mass protocol.
== END 2022-06-02 13:17 | disposition home or self-care (01) ==
LOC: HO.US 13:16
PROVIDERS: Visit Provider Internal Medicine
DX: N28.1 Cyst of kidney, acquired (principal)
CPT/HCPCS: 76775

== ENCOUNTER → 2022-07-09 09:38 | Outpatient (BNVA) | payer OTHER, SELFPAY | PROVIDERS: PCP Internal Medicine; Visit Provider Neurological Surgery | DX: Z13.89 Encounter for screening for other disorder (principal) ==

== ENCOUNTER → 2022-08-11 10:47 | Outpatient (BNVA) | payer OTHER, SELFPAY | PROVIDERS: PCP Internal Medicine; Visit Provider Anesthesiology ==

== ENCOUNTER 2022-08-22 08:52 | Outpatient (REF) | payer OTHER, SELFPAY ==
[2022-08-22 10:21] LABS: Alanine Aminotransferase 17 U/L (0-31); Albumin Level 4.4 g/dL (3.5-5.0); Alkaline Phosphatase 66 U/L (39-117); Anion Gap 12 (12-20); Aspartate Amino Transferase 20 U/L (5-31); Blood Urea Nitrogen 13 mg/dL (9-16); Carbon Dioxide 28 mmol/L (22-29); Chloride 100 mmol/L (96-108); Cholesterol 221 mg/dL; Estimated Glomerular Filt Rate > 60; Folate 13.8 ng/mL (> or = 4.0); Glucose Random 104 mg/dL (60-115); HDL Cholesterol 64 mg/dL; LDL Cholesterol Calculated 140 mg/dl; Potassium 4.3 mmol/L (3.3-5.1); Sodium 136 mmol/L (135-145); Triglycerides 89 mg/dL; Vitamin B12 560 pg/mL (200-900); Vitamin D 25-OH Total 49.8 ng/mL (>30)
== END 2022-08-22 08:53 | disposition home or self-care (01) ==
LOC: HO.LAB 08:52
PROVIDERS: PCP Internal Medicine; Visit Provider Internal Medicine
DX: E78.00 Pure hypercholesterolemia, unspecified (principal); E53.8 Deficiency of other specified B group vitamins; E55.9 Vitamin D deficiency, unspecified
CPT/HCPCS: 36415; 80053; 80061; 82306; 82607; 82746

== ENCOUNTER 2022-10-01 09:24 | Outpatient (REF) | payer OTHER, SELFPAY ==
--- NOTE | 2022-10-01 | EMG_ITS ---
Please see scanned EMG / Nerve Conduction Report. MTDD
== END 2022-10-01 09:25 | disposition home or self-care (01) ==
LOC: HO.NEURO 09:24
PROVIDERS: PCP Internal Medicine; Visit Provider Anesthesiology
DX: M51.16 Intervertebral disc disorders with radiculopathy, lumbar region (principal)
CPT/HCPCS: 95885; 95909

== ENCOUNTER 2022-10-08 10:20 | Outpatient (AMB) | payer OTHER, SELFPAY ==
--- NOTE | 2022-10-08 10:31 | A.OFFVIS_ITS ---
Intake Vital Signs 10/08/22 10:37 Height 5 ft 3 in Weight 146 lb 4 oz BMI 25.9 BP 170/87 H Blood Pressure Location Rt brachial Position Sitting Pulse 65 Pulse Source Pulse Oximeter Pulse Oximetry (%) 96 Oxygen Delivery Method Room Air Intake Visit Reasons: 1 Mo Follow Up Intake Note: Pt here for f/u EMG, results printed for Dr. Pierre. Allergies morphine Allergy (Unknown, Verified 10/08/22 10:38) vomiting anesthesia Allergy (Unknown, Uncoded 10/08/22 10:38) Nausea and Vomiting Narcotic pain medication (stat Allergy (Unknown, Uncoded 10/08/22 10:38) nausea/vomiting Medication List - Last Reconciled 10/08/22 by Zoe Roberts RN cholecalciferol (vitamin D3) 25 mcg PO DAILY lisinopril 5 mg PO DAILY simvastatin 5 mg PO BEDTIME vitamin B complex (B Complex-Vitamin B12 tablet) 1 tab PO DAILY HPI HPI Comments History of Present Illness Details Anna is back in my office to discuss further treatment. She reports today absence of pain. She reports her pain is 0 to 1/10 on regular basis and she reports that she is feeling much better. Previously she was offered epidural steroid injections and she went for EMG. EMG report is available in the chart and is evident of left S1 radiculopathy. I explained to the patient that her condition could be waxing and waning. Possibility also exists that this improvement is permanent. I recommended her if her pain will return to come back and we will perform epidural steroid injection as we were planning before. Prior: complains on pain in the left buttock radiating into posterior left knee and posterior left ankle. pain started in February of 2022. She cannot confirm or deny if those 3 areas of the pain are actually connected. She reports that she went to Dr. Salmon for consultation who sent her for MRI of the lumbar spine which demonstrated left S1 nerve root compression which could explain symptoms like this. She just finished full course of physical therapy at [facility] with no improvement on her pain. She had x-rays and MRIs performed in [facility] in late 2021 and the May of 2022. She takes extra-strength Tylenol to alleviate her pain. She is very cautious about other medications. FORMERLY [facility], [facility] Medical History (Updated 09/11/22 @ 13:13 by Sofiya Kirkland MD) Anemia Breast cancer COVID-19 virus infection Hemochromatosis carrier Hypercholesterolemia Hypertension Leukopenia Surgical History History of breast lump/mass excision History of bunionectomy History of total abdominal hysterectomy and bilateral salpingo-oophorectomy Family History Father Liver cancer Mother Ovarian cancer COPD (chronic obstructive pulmonary disease) Sister Cervical cancer Lung cancer Hemochromatosis Maternal Grandmother Cancer Maternal Grandfather Belinda Gehrig disease Sister No problems noted. Sister No problems noted. Family/Other Hemochromatosis Social History Housing: House Alcohol intake: current Alcohol intake frequency: 0-2 drinks per day Alcohol type: wine Patient Tobacco Use Status: Never used Tobacco e-Cigarette/Vaping Use: Never Used Second Hand Smoke Exposure: No Current occupational status: retired Review of Systems Const All systems reviewed & are unremarkable except as noted in HPI and below ENT Reports Normal hearing present Neuro Reports Normal hearing present, Denies Abnormal speech present and Denies Sensory deficit (Neuro) Physical Exam Vital Signs: Last Vital Signs Pulse 65 10/08/22 10:37 BP 170/87 H 10/08/22 10:37 Pulse Ox 96 10/08/22 10:37 Oxygen Delivery Method Room Air 10/08/22 10:37 BMI result Body Mass Index 25.9 Const General: cooperative, healthy appearing and comfortable Orientation/consciousness: patient oriented x3 Limitations: no limitations Neck Neck: Yes full ROM Chest Chest palpation & inspection: normal inspection of the chest Resp Effort & Inspection: normal respiratory effort, able to speak in complete se ntences, normal respiratory pattern, no audible wheezes and no cough Cardio Jugular venous distension: no JVD GI Inspection: Yes normal to inspection Back/Spine/Pelvis Other: The patient is able to flex herself forward and backward without difficulty. She denies any pain aggravation with those movements. She is able to stand on bilateral tiptoes she is able to dorsiflex and forward flex her foot on the left without difficulty. She is able to lift the great toe in separation of the rest of the toes on the left lower extremity. SLR may be equivocal on the left. Lassegue tests might be positive on the left. Lateral and medial rotation of the left hip does not cause any discomfort, Carlos A test is negative bilaterally. Stinchfield test is negative on the left. Neuro General: patient oriented x3 Cranial nerves: Yes Normal hearing present Speech: No Abnormal speech present Gait exam (Neuro): Normal gait present Motor exam (neuro): 5/5 motor strength present throughout Sensory Exam: No Sensory deficit (Neuro) Extrem General: No pedal edema Psych Speech and movement: Normal speech and movement present Affect: normal affect Attitude: cooperative Thought process: Normal thought process present Thought content: Normal thought content present Insight: Good insight present (Psych) Judgement: Good judgement present (Psych) Assessment & Plan Assessment & Plan (1) Lumbar disc herniation with radiculopathy: Code(s): M51.16 - Intervertebral disc disorders with radiculopathy, lumbar region Plan I offered this patient diagnostic left transforaminal L5-S1 epidural steroid injection to diagnose in properly treat her pain. She is much better now and does not want to do injection. EMG is positive for left S1 radiculopathy. I recommended her to give us a call if her pain will be back. Coding Level of Care Code Est Pt Level 4 (80269) Diagnoses Lumbar disc herniation with radiculopathy M51.16
[2022-10-08 10:37] VITALS: BP 170/87; PULSE 65; O2SAT 96; BMI 25.9
== END 2022-10-08 11:04 | disposition home or self-care (01) ==
PROVIDERS: PCP Internal Medicine; Visit Provider Anesthesiology
DX: M51.16 Intervertebral disc disorders with radiculopathy, lumbar region (principal)
CPT/HCPCS: 99213

== ENCOUNTER → 2022-10-08 10:20 | Outpatient (BNVA) | payer OTHER, SELFPAY | PROVIDERS: PCP Internal Medicine; Visit Provider Anesthesiology ==

== ENCOUNTER 2023-04-07 12:28 | Outpatient (REF) | payer OTHER, SELFPAY ==
--- NOTE | ~2023-04-07 | MM_ITS ---
EXAMINATION: MM DIAGNOSTIC DIGITAL BREAST TOMOSYNTHESIS, BILATERAL CLINICAL INFORMATION: Due for yearly. Also follow-up calcifications right breast 12:00 axis to establish two-year stability and benignity. COMPARISON: Mammography: 04/03/2022, 10/01/2021, 04/24/2021, 04/18/2021 (BI-RADS 0), 04/12/2020, 04/07/2019, 04/01/2018 TECHNIQUE: Digital breast tomosynthesis is performed in both the craniocaudal and mediolateral oblique views along with computer-aided detection (CAD). Synthesized 2D images are generated from the tomosynthesis. In addition to standard views, 2-D spot magnification views in the right CC and ML projections were obtained. FINDINGS: The breasts are heterogeneously dense, which may obscure small masses (ACR BI-RADS breast composition Category c). The tightly grouped calcifications in the central 12:00 right breast have minimally evolved into a more benign appearance, with more rounded and more coarsened morphology. No aggressive changes. These lack aggressive changes over 2 years, and are benign. No further follow-up recommended. Stable post treatment related changes in the upper slightly outer left breast from lumpectomy. The left breast is mildly decreased in size, unchanged. No evidence of disease recurrence. There are no suspicious masses, suspicious grouped calcifications, or areas of architectural distortion in either breast. The diffuse fibronodular parenchymal pattern is stable from prior exams. MM/MM tomosynthesis diagnostic BI IMPRESSION: There are no findings in either breast suspicious for malignancy. Calcifications in the 12:00 central right breast are stable over 2 years, have a classically benign morphology, and no further follow-up recommended. Stable post treatment related changes left breast. Recommend the patient return to routine annual screening. ASSESSMENT: BI-RADS BI-RADS 2 - Benign Findings RECOMMENDATION: 1 year F/U Results were provided to the patient at time of visit by the technologist. This patient's information was entered into a reminder system with a target due date for their next mammogram.
== END 2023-04-07 12:29 | disposition home or self-care (01) ==
LOC: HO.MAMMO 12:28
PROVIDERS: PCP Internal Medicine; Visit Provider Internal Medicine
DX: R92.1 Mammographic calcification found on diagnostic imaging of breast (principal)
CPT/HCPCS: 77062; 77066

== ENCOUNTER → 2023-04-07 13:00 | Outpatient (BNV) | payer OTHER, SELFPAY | PROVIDERS: PCP Internal Medicine; Visit Provider Radiology Diagnostic Radiology | DX: R92.1 Mammographic calcification found on diagnostic imaging of breast (principal) | CPT/HCPCS: 77062; 77066 ==

== ENCOUNTER 2023-05-21 10:02 | Outpatient (AMB) | payer OTHER, SELFPAY ==
[2023-05-21 10:07] VITALS: BP 142/90; PULSE 69; O2SAT 98; BMI 25.7
--- NOTE | 2023-05-21 10:07 | A.OFFPC_ITS ---
Vital Signs 05/21/23 10:07 Height 5 ft 3 in Weight 145 lb 0.8 oz BMI 25.7 BP 142/90 H Blood Pressure Location Rt brachial Position Sitting Pulse 69 Pulse Source Pulse Oximeter Pulse Oximetry (%) 98 Oxygen Delivery Method Room Air Intake Visit Reasons: Annual exam Intake Note: Patient is here today for a physical. Stake Driver Required: No Allergies morphine Allergy (Unknown, Verified 05/21/23 10:08) vomiting anesthesia Allergy (Unknown, Uncoded 05/21/23 10:08) Nausea and Vomiting Narcotic pain medication (stat Allergy (Unknown, Uncoded 05/21/23 10:08) nausea/vomiting Medication List - Last Reconciled 05/21/23 by Waqar Reyez MD cholecalciferol (vitamin D3) 25 mcg PO DAILY lisinopril 5 mg PO DAILY simvastatin 5 mg PO BEDTIME vitamin B complex (B Complex-Vitamin B12 tablet) 1 tab PO DAILY Tobacco use date assessed: 05/21/23 Fall risk assessment: No Falls in past year Last assessed Fall Risk: 05/21/23 Dental Screening Dental Screen Date: 05/21/23 Did you have a dental visit in the last 12 months?: Yes Did you have a dental problem in the last 6 months where you did not have access to dental care?: No Was dental information given to patient?: Patient has dentist HPI Annual exam HPI Details 72-year-old female with a history of hyp ertension hypercholesterolemia history of breast cancer with an up-to-date mammogram March 2023 and lumbar radiculopathy last seen in April 2022 for physical exam. Patient's colonoscopy is up-to-date November 2013 and due this year. Bone density is up-to-date. Review of the notes September 2022 had a nerve conduction test showing normal motor and sensory nerve conduction left lower extremity has left S1 radiculopathy normal EMG left L4-S1 innervated muscles consistent with mild innervated potentials in the S1 innervated muscles consistent with S1 radiculopathy. Patient also has followed up with Hematology-Oncology August 2022. 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 Patient did see the neurosurgeon also offered epidural steroid injection. The patient has been feeling better and so held off. The MRI of the lumbar region was done in May 2022 showing L5-S1 central and left subarticular disc protrusion compressing on the left S1 nerve root in the subarticular zone noted also mild degenerative changes in the lumbar spine. complaining of hand pain denynfall but due to the yard work [facility] Medical History (Updated 05/21/23 @ 11:18 by Waqar Reyez MD) Breast calcification seen on mammogram Annual physical exam COVID-19 virus infection Hemochromatosis carrier Breast cancer Leukopenia Hypercholesterolemia Anemia Hypertension Surgical History History of breast lump/mass excision History of total abdominal hysterectomy and bilateral salpingo-oophorectomy History of bunionectomy Family History Father Liver cancer Mother Ovarian cancer COPD (chronic obstructive pulmonary disease) Sister Cervical cancer Lung cancer Hemochromatosis Maternal Grandmother Cancer Maternal Grandfather Belinda Gehrig disease Sister No problems noted. Sister No problems noted. Family/Other Hemochromatosis Social History (Updated 05/21/23 @ 11:05 by Waqar Reyez MD) Housing: House Alcohol intake: current Alcohol intake frequency: 0-2 drinks per day Alcohol type: wine Comment: glass of wine QD Patient Tobacco Use Status: Never used Tobacco e-Cigarette/Vaping Use: Never Used Second Hand Smoke Exposure: No Current occupational status: retired Cognitive needs: No Hearing needs: No Vision needs: No Questionnaire PHQ-9 Over the last 2 weeks, how often have you been bothered by any of the following problems? 1. Little interest or pleasure in doing things: not at all 2. Feeling down, depressed, or hopeless: not at all 3. Trouble falling or staying asleep, or sleeping too much: not at all 4. Feeling tired or having little energy: not at all 5. Poor appetite or overeating: not at all 6. Feeling bad about yourself - or that you are a failure or have let yourself or your family down: not at all 7. Trouble concentrating on things, such as reading the newspaper or watching television: not at all 8. Moving or speaking so slowly that other people could have noticed. Or the opposite - being so fidgety or restless that you have been moving around a lot more than usual: not at all 9. Thoughts that you would be better off or of hurting yourself in some way: not at all Total score: 0 Source: Developed by Drs. Joaquín Watson, Shante Flores, Ovidio Arnold and colleagues, with an educational everton from [employer]. Thrive Questionnaire Date Thrive assessed: 05/21/23 I am a: Patient What is your living situation today?: I have a steady place to live Within the past 12 months, did the food you bought not last and you didn't have the money to get more?: Never true Within the past 12 months, did you worry whether your food would run out before you got money to buy more?: Never true Do you have trouble paying for medicines?: No Do you have trouble getting transportation to medical appointments?: No Do you have trouble paying your heating and electricity bill?: No Do you have trouble taking care of your child, family member or friend?: No Do you have trouble with day-to-day activities such as bathing, preparing meals, shopping, managing finances, etc.?: No Are you currently unemployed and looking for a job?: No Are you interested in more education?: No Please select the resources that you would like help with: None THRIVE Score: 0 AUDIT C Alcohol Use Questionnaire (AUDIT-C) 1. How often do you have a drink containing alcohol?: Monthly or less 2. How many drinks containing alcohol do you have on a typical day when you are drinking?: 1 or 2 3. How often do you have six or more drinks on one occasion?: Never Total Score: 1 Score Reviewed/Action Taken: No KATELYNN-7 AMB Questionnaire KATELYNN-7 Date KATELYNN - 7 assessed: 05/21/23 Feeling nervous, anxious, or on edge: 0 = Not at all Not being able to stop or control worryin = Not at all Worrying too much about different things: 0 = Not at all Trouble relaxin = Not at all Being so restless that it is hard to sit still: 0 = Not at all Becoming easily annoyed or irritable: 0 = Not at all Feeling afraid as if something awful might happen: 0 = Not at all Total KATELYNN-7 score (0-4 normal; 5-9 mild; 10-14 moderate; 15-21 severe): 0 Source: Developed by Drs. Joaquín Watson, Shante Flores, Ovidio Arnold and colleagues, with an educational everton from [employer]. Review of Systems Const Denies poor appetite and Denies weakness Eyes Denies no additional complaints ENT Reports Normal hearing present, Denies dizziness, Denies nasal congestion, Denies tinnitus and Denies sore throat Card Denies chest pain, Denies syncope, Denies rapid heart rate and Denies dyspnea Resp Denies cough and Denies dyspnea GI Denies change in stool character, Reports constipation, Denies diarrhea, Denies nausea and Denies vomiting Denies urinary frequency, Denies difficulty voiding and Denies dysuria Neuro Reports Normal hearing present, Denies confusion, Denies dizziness, Denies syncope and Denies weakness Psych Denies confusion Physical exam (Primary Care) Vital Signs: Last Vital Signs Pulse 69 05/21/23 10:07 BP 142/90 H 05/21/23 10:07 Pulse Ox 98 05/21/23 10:07 Oxygen Delivery Method Room Air 05/21/23 10:07 BMI result Body Mass Index 25.7 Tobacco/Smoking Status: Tobacco use Status Tobacco use date assessed 05/21/23 05/21/23 10:09 Patient Tobacco Use Status Never used Tobacco 05/21/23 10:09 e-Cigarette/Vaping Use Never Used 05/21/23 10:09 PHQ-9: PHQ-9 Score PHQ-9: Total score 0 05/21/23 10:43 Thrive Assessment: Date of Thrive Assessment Date Thrive assessed 05/21/23 05/21/23 10:09 Const General: No confusion Orientation/consciousness: No confusion HENMT Head: Yes normocephalic Ears: external ears normal and TM's normal bilaterally Face and sinus: Yes normal facial exam Mouth: moist mucous membranes Throat: Yes tonsils normal Eyes Conjunctivae: conjunctivae normal Pupils: Equal, round and reactive pupils present and Pupil accommodation reflex normal Direct Ophthalmoscopy: normal light reflex Neck Neck: No lymphadenopathy Thyroid: Thyroid normal Chest Chest palpation & inspection: normal inspection of the chest Resp Effort & Inspection: normal respiratory effort and no audible wheezes Auscultation: clear to auscultation bilaterally, no crackles, no wheezes and lung sounds not diminished Cardio Rate: regular rate Rhythm: regular rhythm Peripheral pulses: radial pulses present and dorsalis pedis present GI Palpation (GI): no masses Auscultation: normal bowel sounds and normoactive bowel sounds Rectal Exam - Female: deferred Skin General skin exam: no rashes or lesions noted Rashes: no rashes Neuro General: No confusion Cranial nerves: Yes Equal, round and reactive pupils present and Yes Normal hearing present Cognition (Neuro): normal cognition Gait exam (Neuro): Normal gait present Motor exam (neuro): 5/5 motor strength present throughout Deep tendon reflexes (DTR's): Right brachioradialis reflex intensity grade: 2+, Left brachioradialis reflex intensity grade: 2+, Right patellar reflex intensity grade: 2+ and Left patellar reflex intensity grade: 2+ Extrem General: No edema Assessment and Plan Assessment & Plan (1) Annual physical exam: Code(s): Z00.00 - Encounter for general adult medical examination without abnormal findings (2) Breast cancer: Code(s): C50.919 - Malignant neoplasm of unspecified site of unspecified female breast Plan: Patient is being followed up by hematology oncology and up-to-date with mammogram (3) Hypertension: Code(s): I10 - Essential (primary) hypertension Qualifiers: Hypertension type: essential hypertension Qualified Code(s): I10 - Esse ntial (primary) hypertension Plan: Continue with blood pressure medication. Decrease salt intake and exercise presently on lisinopril 5 mg once a day (4) Hypercholesterolemia: Code(s): E78.00 - Pure hypercholesterolemia, unspecified Plan: Avoid fried foods, chicken skin, eggs, butter margarine, pastries and meat. Be it pork or beef they have a lot of cholesterol LDL goal of less than 130 and triglyceride of less than 150. Presently on simvastatin 5 mg once a day October 2022 last blood work (5) Lumbar disc herniation with radiculopathy: Comment: May 2022 Code(s): M51.16 - Intervertebral disc disorders with radiculopathy, lumbar region Plan: Patient has been seen by neurosurgeon as well as the pain management presently doing good (6) Carrier of hemochromatosis HFE gene mutation: Code(s): Z14.8 - Genetic carrier of other disease Plan: This is followed up by hematology oncology (7) Colon cancer screening: Code(s): Z12.11 - Encounter for screening for malignant neoplasm of colon Orders: Orders Complete Blood Count Auto Diff Today E78.00 - Pure hypercholesterolemia, unspecified Thyroid Stimulating Hormone Today E78.00 - Pure hypercholesterolemia, unspecified Lipid Panel Today E78.00 - Pure hypercholesterolemia, unspecified Vitamin D 25-OH Total Today E78.00 - Pure hypercholesterolemia, unspecified Comprehensive Met. Panel Today E78.00 - Pure hypercholesterolemia, unspecified Free T4 (Free Thyroxine) Today E78.00 - Pure hypercholesterolemia, unspecified Vitamin B12 and Folate Today E78.00 - Pure hypercholesterolemia, unspecified Referrals Gastroenterology Referral Z12.11 - Encounter for screening for malignant neoplasm of colon Coding Level of Care Code Est Pt Prev Care >65y(76188) Diagnoses Annual physical exam Z00.00 Breast cancer C50.919 Essential hypertension I10 Hypertension type: essential hypertension Hypercholesterolemia E78.00 Lumbar disc herniation with radiculopathy M51.16 Carrier of hemochromatosis HFE gene mutation Z14.8 Colon cancer screening Z12.11
== END 2023-05-21 11:26 | disposition home or self-care (01) ==
PROVIDERS: Visit Provider Internal Medicine
DX: Z00.00 Encounter for general adult medical examination without abnormal findings (principal); C50.919 Malignant neoplasm of unspecified site of unspecified female breast; I10 Essential (primary) hypertension; E78.00 Pure hypercholesterolemia, unspecified; M51.16 Intervertebral disc disorders with radiculopathy, lumbar region; Z14.8 Genetic carrier of other disease; Z12.11 Encounter for screening for malignant neoplasm of colon
CPT/HCPCS: 99397

== ENCOUNTER 2023-05-25 09:06 | Outpatient (REF) | payer OTHER, SELFPAY ==
[2023-05-25 09:34] LABS: MANUAL DIFF FLAG NO
[2023-05-25 09:45] LABS: Basophils Percent Auto 0.3 % (0-2); Eosinophils Absolute Auto 0.1 X10*3/uL (0.0-0.4); Eosinophils Percent Auto 1.4 % (0-4); Hematocrit 39.5 % (37.0-47.0); Hemoglobin 12.9 g/dl (12.0-16.0); Lymphocytes Absolute Auto 0.8 X10*3/uL (1.2-4.9); Lymphocytes Percent Auto 22.9 % (20-40); Mean Corpuscular HGB Conc 32.7 g/dl (31.0-35.0); Mean Corpuscular Hemoglobin 28.5 pg (27.0-33.0); Mean Corpuscular Volume 87.2 fL (80.0-98.0); Mean Platelet Volume 9.5 fL (9.4-12.3); Monocytes Absolute Auto 0.3 X10*3/uL (0.1-1.2); Monocytes Percent Auto 8.8 % (2-11); Neutrophils Absolute Auto 2.4 x10*3/uL (2.0-8.3); Neutrophils Percent Auto 66.6 % (45-73); Platelet Count 225 X10*3/uL (160-400); Red Blood Count 4.53 X10*6/uL (4.20-5.50); Red Cell Distribution Width 12.6 % (11.0-16.0); White Blood Count 3.5 X10*3/uL (4.8-10.8)
[2023-05-25 10:25] LABS: Alanine Aminotransferase 16 U/L (0-31); Albumin Level 4.5 g/dL (3.5-5.0); Alkaline Phosphatase 74 U/L (39-117); Anion Gap 11 (12-20); Aspartate Amino Transferase 17 U/L (5-31); Bilirubin Total 0.5 mg/dL (0.0-1.0); Blood Urea Nitrogen 12 mg/dL (9-16); Calcium 9.7 mg/dL (8.4-10.2); Carbon Dioxide 30 mmol/L (22-29); Chloride 104 mmol/L (96-108); Cholesterol 207 mg/dL (<200); Estimated Glomerular Filt Rate > 60; Glucose Random 92 mg/dL (60-115); HDL Cholesterol 61 mg/dL (>40); LDL Cholesterol Calculated 132 mg/dL (<100); Potassium 4.7 mmol/L (3.3-5.1); Sodium 140 mmol/L (135-145); Total Protein 7.2 g/dL (6.5-8.0); Triglycerides 70 mg/dL (<150)
[2023-05-25 10:48] LABS: Free T4 (Free Thyroxine) 0.93 ng/dL (0.71-1.85); Thyroid Stimulating Hormone 1.26 uIU/mL (0.32-4.0); Vitamin D 25-OH Total 45.8 ng/mL (>30)
[2023-05-25 10:53] LABS: Folate 10.7 ng/mL (> or = 4.0); Vitamin B12 874 pg/mL (200-900)
== END 2023-05-25 09:07 | disposition home or self-care (01) ==
LOC: HO.LAB 09:06
PROVIDERS: PCP Internal Medicine; Visit Provider Internal Medicine
DX: E78.00 Pure hypercholesterolemia, unspecified (principal)
CPT/HCPCS: 36415; 80053; 80061; 82306; 82607; 82746; 84439; 84443; 85025

== ENCOUNTER 2024-01-06 06:59 | Day surgery (SDC) | payer OTHER, SELFPAY ==
[2023-12-31 16:32] VITALS: BMI 25.2
--- NOTE | 2024-01-05 08:28 | P.CONAN_ITS ---
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 Sister No problems noted. Family/Other Hemochromatosis Surgical History Surgical History Hx of colonoscopy (2003) History of breast lump/mass excision History of total abdominal hysterectomy and bilateral salpingo-oophorectomy History of bunionectomy Social History Social History (Updated 12/31/23 @ 16:37 by Nichol Adames RN) Household Members: None Housing: House Are you a primary career development coordinator/teacher to a significant other at home: No Do you presently have visiting nurse or other home services: No Alcohol intake: current Alcohol intake frequency: 0-2 drinks per day Alcohol type: wine Comment: glass of wine QD Patient Tobacco Use Status: Never used Tobacco e-Cigarette/Vaping Use: Never Used Second Hand Smoke Exposure: No Use of substances other than those prescribed or required for medical reasons: No Have you been hit, kicked, punched, or otherwise hurt by someone within the past year? If so, by whom?: No Are you DNR?: No Advance Directives: Yes Advance Directives Information Provided: No Advance Directives on File: Yes Advance Directives Date on File: 12/14/13 Recently lost weight without trying: No Nutrition Risks: No Nutritional Risk Poor oral hygiene: No Current occupational status: retired Cognitive needs: No Hearing needs: No Vision needs: No Meds Allergies Allergy/AdvReac Type Severity Reaction Status Date / Time morphine Allergy Severe Nausea and Verified 12/31/23 16:26 Vomiting anesthesia Allergy Severe Nausea and Uncoded 12/31/23 16:26 Vomiting Narcotic pain medication Allergy Severe Nausea and Uncoded 12/31/23 16:26 (stat Vomiting Home Medications ?Medication ?Instructions ?Recorded ?Confirmed ?Last Taken ?Type cholecalciferol (vitamin D3) 25 25 mcg PO DAILY 07/09/22 12/31/23 Unknown History mcg (1,000 unit) capsule vitamin B complex (B 1 tab PO DAILY 07/09/22 12/31/23 Unknown History Complex-Vitamin B12 tablet) Exam Height,Weight and Vital Signs: Height 5 ft 3 in Weight 64.41 kg Assessment and Plan Assessment Anesthesia Assessment: Chart Reviewed Documented by User: Thomas Ibrahim MD 01/06/24 08:14 [facility] Past Medical History Medical History COVID-19 virus infection Breast calcification seen on mammogram Annual physical exam Hemochromatosis carrier Breast cancer Leukopenia Hypercholesterolemia Anemia Hypertension Family History Family History Father Liver cancer Mother Ovarian cancer COPD (chronic obstructive pulmonary disease) Sister Cervical cancer Lung cancer Hemochromatosis Maternal Grandmother Cancer Maternal Grandfather Belinda Gehrig disease Sister No problems noted. Sister No problems noted. Family/Other Hemochromatosis Family history of problems with anesthesia: No Surgical History Surgical History Hx of colonoscopy (2003) History of breast lump/mass excision History of total abdominal hysterectomy and bilateral salpingo-oophorectomy History of bunionectomy History of Problems with Anesthesia: Yes (PONV) Social History Social History (Updated 12/31/23 @ 16:37 by Nichol Adames RN) Household Members: None Housing: House Are you a primary career development coordinator/teacher to a significant other at home: No Do you presently have visiting nurse or other home services: No Alcohol intake: current Alcohol intake frequency: 0-2 drinks per day Alcohol type: wine Comment: glass of wine QD Patient Tobacco Use Status: Never used Tobacco e-Cigarette/Vaping Use: Never Used Second Hand Smoke Exposure: No Use of substances other than those prescribed or required for medical reasons: No Have you been hit, kicked, punched, or otherwise hurt by someone within the past year? If so, by whom?: No Are you DNR?: No Advance Directives: Yes Advance Directives Information Provided: No Advance Directives on File: Yes Advance Directives Date on File: 12/14/13 Recently lost weight without trying: No Nutrition Risks: No Nutritional Risk Poor oral hygiene: No Current occupational status: retired Cognitive needs: No Hearing needs: No Vision needs: No Meds Allergies Allergy/AdvReac Type Severity Reaction Status Date / Time morphine Allergy Severe Nausea and Verified 12/31/23 16:26 Vomiting anesthesia Allergy Severe Nausea and Uncoded 12/31/23 16:26 Vomiting Narcotic pain medication Allergy Severe Nausea and Uncoded 12/31/23 16:26 (stat Vomiting Home Medications ?Medication ?Instructions ?Recorded ?Confirmed ?Last Taken ?Type cholecalciferol (vitamin D3) 25 25 mcg PO DAILY 07/09/22 12/31/23 Unknown History mcg (1,000 unit) capsule vitamin B complex (B 1 tab PO DAILY 07/09/22 12/31/23 Unknown History Complex-Vitamin B12 tablet) Exam Airway Mallampati Class: II TM Dist: >3cm Neck ROM: Full Loose/Missing/Broken Teeth: No Heart: ok Lungs: ok Assessment and Plan Assessment Anesthesia Assessment: Anesthesia Plan Discussed Final Anesthetic Review Family History of Problems with Anesthesia: No History of Problems with Anesthesia: Yes (PONV) NPO: Yes ASA Class: III Final Preanesthetic Review: No Changes in Pt Med Stat, Meds/Allgs Chart Reviewed, Consent Obtained/Reviewed and Anes Risks/Benef Reviewed Patient Risk: Intermediate Procedure Risk: Low Anesthetic Plan Anesthetic Plan: MAC: and Agree w/ Assess. and Plan Disposition: Standard PACU
[2024-01-06 08:06] VITALS: BP 148/87; PULSE 90; RESP 18; TEMP 36.2; O2SAT 96; BMI 25.0
[2024-01-06] MEDS: Lactated Ringers 1,000 ML 100 ML IVCONT (08:17)
--- NOTE | 2024-01-06 09:15 | P.BOP_ITS ---
Brief Operative Note Date of Service: 01/06/24 Pre-op diagnosis: Screening Post-op diagnosis: other (Diverticulosis) Procedure: Colonoscopy to the cecum Surgeon: Joaquín Biggs MD Anesthesia: MAC Was an Boring Machine Operator used for this Procedure?: No Estimated blood loss (mL): 0 Pathology: none sent Condition: stable Disposition: PACU
[2024-01-06 09:18] VITALS: BP 91/44; PULSE 85; RESP 18; TEMP 36.4; O2SAT 99
[2024-01-06 09:33] VITALS: BP 139/90; PULSE 71; RESP 18; TEMP 36.1; O2SAT 100
--- NOTE | 2024-01-06 09:56 | OP_ITS ---
DATE OF SERVICE: 01/06/2024 SURGEON: Joaquín Biggs MD INDICATIONS: The patient presents for evaluation of colorectal cancer screening. Full consent has been obtained from her for this, including risks of bleeding and perforation. PREOPERATIVE DIAGNOSIS: Colorectal cancer screening. POSTOPERATIVE DIAGNOSIS: PROCEDURE PERFORMED: Colonoscopy to cecum. ESTIMATED BLOOD LOSS: COMPLICATIONS: ANESTHESIA: Monitored anesthesia care. ASSISTANTS: SPECIMENS: POSTOPERATIVE DIAGNOSES: Colorectal cancer screening, diverticulosis, and internal hemorrhoids. DESCRIPTION OF PROCEDURE: The patient was placed in the left lateral decubitus position. The digital rectal exam revealed no abnormalities. The Olympus video pediatric colonoscope was then entered into the rectum and advanced to the cecum with the assistance of abdominal wall pressure. Once in the cecum, I did identify normal-appearing cecal pouch with appendiceal orifice and a normal-appearing ileocecal valve. The entire cecum and ileocecal valve appeared normal. The scope was slowly withdrawn assessing all mucosal surfaces carefully. Preparation was excellent. I did not visualize any sign of polyps, colitis, nor angiodysplasias. There was a mild amount of sigmoid diverticulosis. In the rectum, scope was retroflexed, visualizing internal hemorrhoids, but no other pathology. The rectal mucosa appeared normal. The scope was straightened and withdrawn from the patient. She tolerated the procedure well and was returned to the recovery area in stable condition. IMPRESSION: 1. Sigmoid diverticulosis. 2. Internal hemorrhoids. PLAN: Given today's negative colonoscopy, along with 2 previous negative screening colonoscopies over the last 20 years, and no family history of colon cancer, I do not think she would need any further screening colonoscopy. She will, otherwise, see me on a p.r.n. basis. MD ORBERT Brown/PERRI / [phone]
== END 2024-01-06 10:00 | disposition home or self-care (01) ==
PROVIDERS: PCP Internal Medicine; Visit Provider Internal Medicine
PROC: 0DJD8ZZ Inspection of Lower Intestinal Tract, Via Natural or Artificial Opening Endoscopic (ICD-10-PCS; CPT 45378; principal; 2024-01-06 08:10)
DX: Z12.11 Encounter for screening for malignant neoplasm of colon (principal); K57.30 Diverticulosis of large intestine without perforation or abscess without bleeding; K64.8 Other hemorrhoids; I10 Essential (primary) hypertension; E78.5 Hyperlipidemia, unspecified; Z85.3 Personal history of malignant neoplasm of breast; Z92.3 Personal history of irradiation; Z79.899 Other long term (current) drug therapy; Z90.710 Acquired absence of both cervix and uterus; Z98.890 Other specified postprocedural states
CPT/HCPCS: 45378; J2003; J2704

== ENCOUNTER 2024-04-19 12:16 | Outpatient (REF) | payer OTHER, SELFPAY ==
--- NOTE | ~2024-04-19 | MM_ITS ---
EXAMINATION: DXA BONE DENSITY AXIAL HISTORY: Estrogen deficiency TECHNIQUE: [employer] Dual energy absorptiometry (DEXA) of the lumbar spine, total left hip, and femoral neck was performed. COMPARISON: Comparison is made with the prior examination dated 04/16/2022. FINDINGS: The bone mineral density of the lumbar spine is 1.343 with a T-score of 1.4, and a Z-score of 3.1. This represents a BMD change of 2.4% compared to the prior exam. This is statistically significant. The bone mineral density of the left total hip is 1.129 with a T-score of 1.0, and a Z-score of 2.6. This represents BMD change of -4.1% compared to the prior exam. This is statistically significant. The bone mineral density of the left femoral neck is 1.093 with a T-score of 0.4, and a Z-score of 2.2. This represents BMD change of -5.3% compared to the prior exam. MM/XR DEXA axial skeleton IMPRESSION: Based on bone mineral density, and according to World Health Organization (WHO) criteria, the diagnosis is consistent with normal bone mineral density. All bone density values are in grams per centimeter squared (g/cm2). Statistically, 68% of repeat scans fall within 1 SD (+/- 0.010 g/cm2 for AP spine L1-L4) and 1 SD (+/- 0.012 g/cm2 for femur total) FRAX is a trademark of the [employer]'s [employer] Met[employer] Disease, a World Health Organization (WHO) Collaborating Center. Electronically signed by: Joaquín Toth MD 04/25/2024 11:38 AM [facility]
--- OUTSIDE RECORDS SUMMARY | 2024-04-19 13:11 | XMS_ITS | Clinical Summary ---
Author Organization [facility], Address [address] [place] [address] Phone Care Team Providers Care Resource Efficiency Manager Name Role Phone Waqar Reyez MD Primary Care Provider [phone] Allergies No known active allergies Medications lisinopril (PRINIVIL,ZESTRIL) 5 MG tablet 01/12/2019 Active simvastatin (ZOCOR) 5 MG tablet 01/12/2019 Active Active Problems Problem Noted Date Diagnosed Date Vitamin D deficiency, not otherwise specified Chronic kidney disease stage 2 02/28/2019 Hypertensive disorder 02/28/2019 Immunizations Name Administration Dates Next Due Influenza Vaccine, Quadrivalent, Adjuvanted 10/2019 Family History Medical History Relation Comments Hypertension Father Kidney disease Father Cancer Mother grandmother Hypertension Mother Relation Status Comments Father Mother Social History Tobacco Use Types Packs/Day Years Used Date Smoking Tobacco: Never Alcohol Use Standard Drinks/Week Comments Yes 0 (1 standard drink = 0.6 oz pure alcohol) Alcoholic Drinks/day: Occasional social drink Comments Unknown Sex and Gender Information Value Date Recorded Sex Assigned at Not on file Legal Sex Female 4:33 PM EST Gender Identity Not on file Sexual Orientation Not on file Last Filed Vital Signs Vital Sign Reading Time Taken Comments Blood Pressure 100/64 02/28/2019 1:36 PM EST Pulse - - Temperature - - Respiratory Rate - - Oxygen Saturation - - Inhaled Oxygen Concentration - - Weight 60.8 kg (134 lb) 02/28/2019 1:36 PM EST Height 160 cm (5' 3 ) 03/01/2018 12:00 PM EST Body Mass Index 23.74 03/01/2018 12:00 PM EST Plan of Treatment Health Maintenance Due Date Last Done Comments Breast Cancer Screening 1950 Pneumococcal Vaccine: 65+ Ye ars (1 of 2 - PCV) 09[birth year]24/1956 Colorectal Cancer Screening: Annual FOBT 09/24/2000 Colorectal Cancer Screening: Colonoscopy 09/24/2000 Colorectal Cancer Screening: Sigmoidoscopy 09/24/2000 Influenza Vaccine (#1) 2023 11/29/2019 Hepatitis B Vaccine Aged Out No longe r eligible based on patient's age to complete this topic Insurance [employer] Care Teams Resource Efficiency Manager Relationship Specialty Start Date End Date Waqar Reyez MD [facility] [place] [address] [facility] [place] PCP - General 01/25/19
--- OUTSIDE RECORDS SUMMARY | 2024-04-19 13:11 | XMS_ITS | Encounter Summary ---
Author Organization [facility], Address [address] [place] [address] Phone Care Team Providers Care Scrap Crusher Name Role Phone Waqar Reyez MD Primary Care Provider [phone] Encounter Details Date Type Department Care Team (Late st Contact Info) Description 05/06/2021 Documentation Only [facility], [address] [place] [address] Wil Lawson MD [address] [place] [id number] Social History Tobacco Use Types Packs/Day Years Used Date Smoking Tobacco: Never Alcohol Use Standard Drinks/Week Comments Yes 0 (1 standard drink = 0.6 oz pure alcohol) Alcoholic Drinks/day: Occasional social drink Comments Unknown Sex and Gender Information Value Date Recorded Sex Assigned at Not on file Legal Sex Female 4:33 PM EST Gender Identity Not on file Sexual Orientation Not on file documented as of this encounter Plan of Treatment Not on file documented as of this encounter Visit Diagnoses Not on filedocumented in this encounter Care Teams Scrap Crusher Relationship Specialty Start Date End Date Waqar Reyez MD [facility] [address] [place] PCP - General 01/25/19 documented as of this encounter
--- OUTSIDE RECORDS SUMMARY | 2024-04-19 13:11 | XMS_ITS | Encounter Summary ---
Author Organization [facility] Address [address] [place] [address] Phone Care Team Providers Care Egg Smeller Name Role Phone Waqar Reyez MD Primary Care Provider [phone] Encounter Details Date Type Department Care Team (Late st Contact Info) Description 02/29/2020 Orders Only [facility] [address] [place] [address] Charlee Russ MD Chronic kidney disease stage 2; Hypertensive disorder Social History Tobacco Use Types Packs/Day Years [...] documented as of this encounter Visit Diagnoses Diagnosis Chronic kidney disease stage 2 Hypertensive disorder documented in this encounter Care Teams Egg Smeller Relationship Specialty Start Date End Date Waqar Reyez MD [facility] [place] [address] [facility] [place] PCP - General 01/25/19 documented as of this encounter
--- OUTSIDE RECORDS SUMMARY | 2024-04-19 13:11 | XMS_ITS ---
Author Organization [facility] Address [address] [place] [address] Care Team Providers Care Knitter Wire Mesh Name Role Phone Po Waqar COELHO Primary Care Provider Joaquín Obrien [phone] REASON FOR VISIT screening PROBLEMS Problem Type ICD Code Onset Dates Problem Status W/U Status Risk SNOMED Code Notes Problem Diverticulosis of large intestine without perforation or abscess without bleeding (K57.30) Active confirmed Diverticul ar disease of colon (936632664) Encounters Encounter Location Date Provider Diagnosis [facility] Out[address] [place], [place] [id number] 01/06/2024 Joaquín Biggs Colon cancer scree love Z12.11 ; Diverticulosis of large intestine without perforation or abscess without bleeding K57.30 and Other hemorrhoids K64.8 ASSESSMENTS Encounter Date Diagnosis Assessment Notes Treatment Notes Treatment Clinical Notes 01/06/2024 Colon cancer screening (ICD-10 - Z12.11) 01/06/2024 Diverticulosis of large intestine without perforation or abscess without bleeding (ICD-10 - K57.30) 01/06/2024 Other hemorrhoids (ICD-10 - K64.8) PLAN OF TREATMENT No Information
--- OUTSIDE RECORDS SUMMARY | 2024-04-19 13:11 | XMS_ITS ---
Author Organization [facility] Address [address] [place] [address] Care Team Providers Care Litigator Name Role Phone Po Waqar COELHO Primary Care Provider Joaquín Obrien [phone] ALLERGIES Allergen (clinical drug ingredient) Drug/Non Drug Allergy documented on EMR Reaction Allergy Type Onset Date Status sensitivity to stron g medications (uncoded) Unknown Allergy Active REASON FOR VISIT Patient presents today for a colon screening MEDICATIONS Medication SIG (Take, Route, Fr equency, Duration) Notes Start Date End Date Status Vitamin D 400 UNIT Orally A ctive Simvastatin 5 MG TAKE 1 TABLET BY ALVINA EVERYDAY AT BEDTIME Oral for 90 Active Vitamin B Complex Ac tive Lisinopril 5 MG 1 tablet Orally Once a day Active PROBLEMS Problem Type ICD Code Onset Dates Problem Status W/U Status Risk SNOMED Code Notes Problem Colon cancer screening (Z12.11) Active confirmed Colon cancer screening (852257959) Problem Encounter for other preprocedural examination (Z01.818) Active confirmed Pre-procedure evaluation check (810637376) VITAL SIGNS BMI 26.28 kg/m2 09/15/2023 Blood pressure systolic 00 mm Hg 09/15/19 24 Blood pressure diastolic 00 mm Hg 024 Height 62.5 in 09/15/2023 Weight 146 lbs 09/15/2023 Encounters Encounter Location Date Provider Diagnosis [facility] [address] [place] [phone] 09/15/2023 Joaquín Biggs Colon cancer screeni ng Z12.11 and Encounter for other preprocedural examination Z01.818 ASSESSMENTS Encounter Date Diagnosis Assessment Notes Treatment Notes Treatment Clinical Notes 09/15/2023 Colon cancer screening (ICD-10 - Z12.11) 09/15/2023 Encounter for other preprocedural examination (ICD-10 - Z01.818) PLAN OF TREATMENT Future Test Test Name Order Date COLONOSCOPY 09/15/2023 Next Appt Details Follow Up: prn, Reason: Progress Notes * Examination Category Sub-Category Detail Notes General Examination GENERAL APPEARANCE: pleasant , well nourished, well developed, in no acute distress HEAD: EYES: sclera non-icteric EARS: NOSE: THROAT: NECK/THYROID: no cervical lymphade nopathy, neck supple HEART: S1, S2 normal CHEST: LUNGS: clear to auscultatio n bilaterally ABDOMEN: normal bowel sounds, no guarding or rigidity, no guarding or rigidity, no masses palpable, soft, nontender, nondistended NEUROLOGIC: alert and oriented SKIN: nonjaundiced, no spi sheree angiomata EXTREMITIES: no edema PERIPHERAL PULSES: BACK: BREASTS: MUSCULOSKELETAL: MALE GENITOURINARY: LYMPH NODES: RECTAL EXAM: FEMALE GENITOURINARY: ORAL CAVITY: mucosa moist
--- OUTSIDE RECORDS SUMMARY | 2024-04-19 13:12 | XMS_ITS | Patient Health Record ---
Author Organization [facility] Address [address] [place] [address] Care Team Providers Care Assessment Director Name Role Phone Po Waqar COELHO Primary Care Provider Joaquín Obrien [phone] ALLERGIES Allergen (clinical drug ingredient) Drug/Non Drug Allergy documented on EMR Reaction Allergy Type Onset Date Status sensitivity to stron g medications (uncoded) Unknown Allergy Active REASON FOR REFERRAL No Information MEDICATIONS Medication SIG (Take, Route, Fr equency, Duration) Notes Start Date End Date Status Vitamin B Complex Ac tive Lisinopril 5 MG 1 tablet Orally Once a day Active Vitamin D 400 UNIT Orally A ctive Simvastatin 5 MG TAKE 1 TABLET BY ALVINA TH EVERYDAY AT BEDTIME Oral for 90 Active SOCIAL HISTORY Sex Assigned At : Social History Observation Description Sex Assigned At Unknown PROBLEMS Problem Type ICD Code Onset Dates Problem Status W/U Status Risk SNOMED Code Notes Problem Colon cancer screening (Z12.11) Active confirmed Colon can cer screening (879149483) Problem Encounter for other preprocedural examination (Z01.818) Active confirmed Pre-procedure evaluation check (808978840) Problem Diverticulosis of large intestine without perforation or abscess without bleeding (K57.30) Active confirmed Diverticul ar disease of colon (644642903) VITAL SIGNS Blood pressure diastolic 00 mm Hg 09/15/2023 Height 62.5 in 09/15/2023 Blood pressure systolic 00 mm Hg 09/15/2023 Weight 146 lbs 09/15/2023 BMI 26.28 kg/m2 09/15/2023 Encounters Encounter Location Date Provider Diagnosis [facility] Outpatient [address] [place] [address] [place] [id number] 01/06/2024 Joaquín Biggs Colon cancer screeni ng Z12.11 ; Diverticulosis of large intestine without perforation or abscess without bleeding K57.30 and Other hemorrhoids K64.8 [facility] [address] [place] [address] 09/15/2023 Joaquín Biggs Colon cancer screeni ng Z12.11 and Encounter for other preprocedural examination Z01.818 ASSESSMENTS Encounter Date Diagnosis Assessment Notes Treatment Notes Treatment Clinical Notes 01/06/2024 Colon cancer screening (ICD-10 - Z12.11) 01/06/2024 Diverticulosis of large intestine without perforation or abscess without bleeding (ICD-10 - K57.30) 09/15/2023 Colon cancer screening (ICD-10 - Z12.11) 09/15/2023 Encounter for other preprocedural examination (ICD-10 - Z01.818) 01/06/2024 Other hemorrhoids (ICD-10 - K64.8) PLAN OF TREATMENT Future Test Test Name Order Date COLONOSCOPY 08/31/2013 COLONOSCOPY 09/15/2023 Insurance Providers Payer Name Payer Address Payer Phone Subscriber Number Group Number Insured Name Patient Relationship to Insured Coverage Start Date Coverage End Date [facility] Insurance ([employer]) [address] [id number] [employer] Self - patient is the insured MEDICAL (GENERAL) HISTORY Medical History History ICD Code Colonoscopy 07/11/2003---only a hyperpla stic polyp Left-sided breast cancer as below--follo wed by Dr. Kirkland-2000 HTN Denies [place],DM,CVA,Lung disease,renal dise ase Negative screening colonoscopy in 11/2013 Hyperlipidemia Surgical History Surgery Date(Month/Year) REBECA in 2001 Left-sided lumpectomy and ra diation treatment in for breast cancer--on Tamoxifen and Arimedex after that as well [facility]
== END 2024-04-19 12:17 | disposition home or self-care (01) ==
LOC: HO.MAMMO 12:16
PROVIDERS: PCP Internal Medicine; Visit Provider Internal Medicine
DX: Z12.31 Encounter for screening mammogram for malignant neoplasm of breast (principal); M81.0 Age-related osteoporosis without current pathological fracture
CPT/HCPCS: 77063; 77067; 77080

== ENCOUNTER → 2024-04-19 13:00 | Outpatient (BNV) | payer OTHER, SELFPAY | PROVIDERS: PCP Internal Medicine; Visit Provider Radiology Diagnostic Radiology | DX: Z12.31 Encounter for screening mammogram for malignant neoplasm of breast (principal) | CPT/HCPCS: 77063; 77067 ==

== ENCOUNTER 2024-05-24 10:10 | Outpatient (AMB) | payer OTHER, SELFPAY ==
--- NOTE | 2024-05-24 10:17 | A.OFFPC_ITS ---
Vital Signs 05/24/24 10:19 Height 5 ft 3 in Weight 143 lb 6 oz BMI 25.4 BP 130/72 Blood Pressure Location Rt brachial Position Sitting Pulse 72 Pulse Source Pulse Oximeter Temp 97.3 F Temp Source Temporal Artery Scan Pulse Oximetry (%) 98 Oxygen Delivery Method Room Air Intake Visit Reasons: annual exam Intake Note: Patient is here today for a physical. Station Helper Required: No Hydraulic Riveter: Not Required per policy Accompanied by: Self / Same As Patient Allergies morphine Allergy (Severe, Verified 05/24/24 10:19) Nausea and Vomiting anesthesia Allergy (Severe, Uncoded 05/24/24 10:19) Nausea and Vomiting Narcotic pain medication (stat Allergy (Severe, Uncoded 05/24/24 10:19) Nausea and Vomiting Medication List - Last Reconciled 05/24/24 by Waqar Reyez MD cholecalciferol (vitamin D3) 25 mcg PO DAILY lisinopril 5 mg PO DAILY simvastatin 5 mg PO BEDTIME vitamin B complex (B Complex-Vitamin B12 tablet) 1 tab PO DAILY Tobacco use date assessed: 05/24/24 Fall risk assessment: No Falls in past year Last assessed Fall Risk: 05/24/24 Dental Screening Dental Screen Date: 05/24/24 Did you have a dental visit in the last 12 months?: Yes Did you have a dental problem in the last 6 months where you did not have access to dental care?: No Was dental information given to patient?: Patient has dentist COUNT INCLUDES [facility] Medical History (Updated 05/24/24 @ 10:57 by Waqar Reyez MD) COVID-19 virus infection Breast calcification seen on mammogram Annual physical exam Hemochromatosis carrier Breast cancer Leukopenia Hypercholesterolemia Anemia Hypertension Surgical History (Updated 05/24/24 @ 10:26 by ARACELY Pal) Hx of colonoscopy (2003) History of breast lump/mass excision History of total abdominal hysterectomy and bilateral salpingo-oophorectomy History of bunionectomy Family History (Updated 05/24/24 @ 10:18 by ARACELY Pal) Father Liver cancer Mother Ovarian cancer COPD (chronic obstructive pulmonary disease) Sister Cervical cancer Lung cancer Hemochromatosis Maternal Grandmother Cancer Maternal Grandfather Belinda Gehrig disease Sister No problems noted. Sister No problems noted. Family/Other Hemochromatosis Social History Household Members: None Housing: House Are you a primary personal care assistant to a significant other at home: No Do you presently have visiting nurse or other home services: No 75 years or older and lives alone: No Alcohol intake: current Alcohol intake frequency: 0-2 drinks per day Alcohol type: wine Comment: glass of wine QD Patient Tobacco Use Status: Never used Tobacco e-Cigarette/Vaping Use: Never Used Second Hand Smoke Exposure: No Advance Directives Date on File: 12/14/13 service: No Current occupational status: retired Cognitive needs: No Hearing needs: No Vision needs: No Questionnaire PHQ-9 Over the last 2 weeks, how often have you been bothered by any of the following problems? 1. Little interest or pleasure in doing things: not at all 2. Feeling down, depressed, or hopeless: not at all 3. Trouble falling or staying asleep, or sleeping too much: not at all 4. Feeling tired or having little energy: not at all 5. Poor appetite or overeating: not at all 6. Feeling bad about yourself - or that you are a failure or have let yourself or your family down: not at all 7. Trouble concentrating on things, such as reading the newspaper or watching television: not at all 8. Moving or speaking so slowly that other people could have noticed. Or the opposite - being so fidgety or restless that you have been moving around a lot more than usual: not at all 9. Thoughts that you would be better off or of hurting yourself in some way: not at all Total score: 0 Depression Screening Interpretation: Negative Depression Screening Done: Yes Source: Developed by Drs. Joaquín Watson, Shante Flores, Ovidio Arnold and colleagues, with an educational everton from [employer]. Thrive Questionnaire Date Thrive assessed: 05/24/24 I am a: Patient What is your living situation today?: I have a steady place to live Within the past 12 months, did the food you bought not last and you didn't have the money to get more?: Never true Within the past 12 months, did you worry whether your food would run out before you got money to buy more?: Never true Do you have trouble paying for medicines?: No Do you have trouble getting transportation to medical appointments?: No Do you have trouble paying your heating and electricity bill?: No Do you have trouble taking care of your child, family member or friend?: No Do you have trouble with day-to-day activities such as bathing, preparing meals, shopping, managing finances, etc.?: No Are you currently unemployed and looking for a job?: No Are you interested in more education?: No Please select the resources that you would like help with: None Currently or been in a relationship where the following occur: No concerns reported THRIVE Score: 0 AUDIT C Alcohol Use Questionnaire (AUDIT-C) 1. How often do you have a drink containing alcohol?: 2-3 times a week 2. How many drinks containing alcohol do you have on a typical day when you are drinking?: 1 or 2 3. How often do you have six or more drinks on one occasion?: Never Total Score: 3 KATELYNN-7 AMB Questionnaire KATELYNN-7 Date KATELYNN - 7 assessed: 05/24/24 Feeling nervous, anxious, or on edge: 0 = Not at all Not being able to stop or control worryin = Not at all Worrying too much about different things: 0 = Not at all Trouble relaxin = Not at all Being so restless that it is hard to sit still: 0 = Not at all Becoming easily annoyed or irritable: 0 = Not at all Feeling afraid as if something awful might happen: 0 = Not at all Total KATELYNN-7 score (0-4 normal; 5-9 mild; 10-14 moderate; 15-21 severe): 0 Source: Developed by Drs. Joaquín Watson, Shante Flores, Ovidio Arnold and colleagues, with an educational everton from [employer]. Review of Systems Const Denies poor appetite and Denies weakness Eyes Denies no additional complaints ENT Reports Normal hearing present, Denies dizziness, Denies nasal congestion, Denies tinnitus and Denies sore throat Card Denies chest pain, Denies syncope, Denies rapid heart rate and Denies dyspnea Resp Denies cough and Denies dyspnea GI Denies change in stool character, Reports constipation, Denies diarrhea, Denies nausea and Denies vomiting Denies urinary frequency, Denies difficulty voiding and Denies dysuria Neuro Reports Normal hearing present, Denies confusion, Denies dizziness, Denies syncope and Denies weakness Psych Denies confusion Physical exam (Primary Care) Vital Signs: Last Vital Signs Temp 97.3 F 05/24/24 10:19 Pulse 72 05/24/24 10:19 BP 130/72 05/24/24 10:19 Pulse Ox 98 05/24/24 10:19 Oxygen Delivery Method Room Air 05/24/24 10:19 BMI result Body Mass Index 25.4 Tobacco/Smoking Status: Tobacco use Status Tobacco use date assessed 05/24/24 05/24/24 10:25 Patient Tobacco Use Status Never used Tobacco 05/24/24 10:18 e-Cigarette/Vaping Use Never Used 05/24/24 10:18 PHQ-9: PHQ-9 Score PHQ-9: Total score 0 05/24/24 10:51 Depression Screening Interpretation: Negative Thrive Assessment: Date of Thrive Assessment Date Thrive assessed 05/24/24 05/24/24 10:18 Currently or been in a relationship where the following occur: No concerns reported Const General: No confusion Orientation/consciousness: No confusion HENMT Head: Yes normocephalic Ears: external ears normal and TM's normal bilaterally Face and sinus: Yes normal facial exam Mouth: moist mucous membranes Throat: Yes tonsils normal Eyes Conjunctivae: conjunctivae normal Pupils: Equal, round and reactive pupils present and Pupil accommodation reflex normal Direct Ophthalmoscopy: normal light reflex Neck Neck: No lymphadenopathy Thyroid: Thyroid normal Chest Chest palpation & inspection: normal inspection of the chest Resp Effort & Inspection: normal respiratory effort and no audible wheezes Auscultation: clear to auscultation bilaterally, no crackles, no wheezes and lung sounds not diminished Cardio Rate: regular rate Rhythm: regular rhythm Peripheral pulses: radial pulses present and dorsalis pedis present GI Palpation (GI): no masses Auscultation: normal bowel sounds and normoactive bowel sounds Rectal Exam - Female: deferred Skin General skin exam: no rashes or lesions noted Rashes: no rashes Neuro General: No confusion Cranial nerves: Yes Equal, round and reactive pupils present and Yes Normal hearing present Cognition (Neuro): normal cognition Gait exam (Neuro): Normal gait present Motor exam (neuro): 5/5 motor strength present throughout Deep tendon reflexes (DTR's): Right brachioradialis reflex intensity grade: 2+, Left brachioradialis reflex intensity grade: 2+, Right patellar reflex intensity grade: 2+ and Left patellar reflex intensity grade: 2+ Extrem General: No edema Coding Level of Care Code Est Pt Prev Care >65y(80382) Diagnoses Annual physical exam Z00.00 Essential hypertension I10 Hypertension type: essential hypertension Hypercholesterolemia E78.00 Breast cancer C50.919 Leucopenia D72.819 Callus of toe L84 Assessment & Plan Assessment & Plan (1) Annual physical exam: Code(s): Z00.00 - Encounter for general adult medical examination without abnormal findings Category: Medical Plan: Patient is advised to eat healthy, keep well hydrated, keep active and have adequate sleep. (2) Hypertension: Code(s): I10 - Essential (primary) hypertension Category: Medical Qualifiers: Hypertension type: essential hypertension Qualified Code(s): I10 - Essential (primary) hypertension Plan: Continue with blood pressure medication. Decrease salt intake and exercise on lisinopril 5 mg once a day (3) Hypercholesterolemia: Code(s): E78.00 - Pure hypercholesterolemia, unspecified Category: Medical Plan: Avoid fried foods, chicken skin, eggs, butter margarine, pastries and meat. Be it pork or beef they have a lot of cholesterol LDL goal of less than 130 and triglyceride of less than 150 (4) Breast cancer: Code(s): C50.919 - Malignant neoplasm of unspecified site of unspecified female breast Category: Medical Plan: Patient is up-to-date with mammogram (5) Leucopenia: Code(s): D72.819 - Decreased white blood cell count, unspecified Category: Medical Plan: Chronic and stable (6) Callus of toe: Code(s): L84 - Corns and callosities Category: Medical Plan History of Present Illness The patient is a 73-year-old female presenting for a wellness examination. She manages essential hypertension and hypercholesterolemia with lisinopril and simvastatin respectively. Cholesterol levels have stabilized recently, reducing to 132. The patient?s blood work as of May 24 indicates normal renal, liver, and glucose levels. Her history of breast cancer is noted, yet no recurrence signs were described in this session. Screening tests such as mammograms are current, and bone density is within normal limits, signifying adequate care for osteoporosis risk. The patient had a delayed colonoscopy initially due in 2022, yet performed in December 2023 revealed internal hemorrhoids and tachycolosis but no malignancy. Anemia was addressed previously, showing no progression. The patient supplements with vitamins D and B due to earlier deficiencies. A lumbar disc herniation persists, complicating activity levels and possibly requiring a lumbar support. She experiences discomfort from a corn on the right toe, worsened by footwear. Health Maintenance - Hypertension control with Lisinopril 5 mg - Hypercholesterolemia management with Simvastatin 5 mg - Recent mammogram results normal - Bone density normal as of April 2022 - Colonoscopy performed December 2023 revealing hemorrhoids, no acute findings - Blood work from May 2023 shows normal renal function and liver function, and glucose within normal limits - Vitamin D and B supplementation due to previous deficiencies - Regular evaluations for anemia Social History - Occasional alcohol consumption, possibly affects sleep quality - Lives in a multi-story home with precautions against falls - Experiences age-related challenges with footwear due to toe deformities - Regular exercise and efforts to maintain hydration - Positive dietary habits Review of Systems - Gastrointestinal: Reports occasional wine-induced heart palpitations; Denies urinary issues. - Musculoskeletal: Denies significant joint pain but notes toe discomfort due to corn. - Neurologic: Denies vertiginous episodes or gait imbalance. - Cardiovascular: Reports palpitations after red wine consumption; Denies chest pain or respiratory disturbances. - General: Denies significant changes in weight or appetite. Physical Exam General: Cooperative, healthy appearing, comfortable, no acute distress and well developed Orientation: Patient oriented x3 Limitations: No limitations Head: Normal to inspection Ears: Hearing grossly normal bilaterally, but patient reports ears feel a little itchy on the inside Nose: Normal external nose present Face and sinus: Normal facial exam Eyes: Appearance normal, both eyes and all related structures Neck: Normal visual inspection and Yes full ROM Respiratory: Normal respiratory effort and able to speak in complete sentences. Clear to auscultation bilaterally Cardiovascular: Regular rate and rhythm. Normal S1 and S2 GI: Normal to inspection. Soft to palpation and nontender Skin: No rashes or lesions noted, but patient reports a horn on the right toe due to curling of toes Neuro: Patient oriented x3 Extremities: Normal to inspection, but patient reports difficulty wearing shoes due to a horn on the right toe Results - Labs: Normal electrolytes, renal, liver function, and glucose as of May 24, 2022. Cholesterol managed at 132. - Tests: Mammogram and bone density normal as of April 2022. - Diagnostics: Colonoscopy December 2023 showed internal hemorrhoids, tachycolosis. Plan Her chronic hypertension and hypercholesterolemia continue to be managed with lisinopril and simvastatin respectively. Blood pressure monitoring and dietary modifications are recommended. Vitamin D and B supplementation will be adjusted as required in subsequent blood tests. Internal hemorrhoids remain non- worrisome, requiring no acute intervention. The patient will need recommendations for a city dispatcher to evaluate foot corn issues. Routine follow- ups are essential, particularly for anemia screening. Patient was informed and verbally consented to the use of an ambient scribe for clinic note documentation during this visit. Discussion Notes I reviewed the patient?s ongoing management of hypertension and hypercholesterolemia and the effectiveness of her current treatments. We discussed the results of her recent mammogram and colonoscopy, both showing normal results, and a follow-up for her toe corn. I recommended routine screening tests remain a priority, and the importance of managing vitamin deficiencies was underscored. Her treatment plan for anemia and vitamin deficiencies was reiterated. Safety precautions, such as fall risk prevention, were discussed given her multi-level home. Patient Instructions - Continue current medications: Lisinopril and Simvastatin. - Maintain vitamin D and B intake as prescribed. - Follow a healthy diet and monitor cholesterol levels. - Perform regular blood pressure checks. - Schedule an appointment with a city dispatcher for right toe corn. - Routine screenings, including mammogram and colonoscopy, as recommended. - Report any new symptoms promptly or significant changes in health. Orders: Orders Complete Blood Count Auto Diff Today E78.00 - Pure hypercholesterolemia, unspecified Comprehensive Met. Panel Today E78.00 - Pure hypercholesterolemia, unspecified Thyroid Stimulating Hormone Today E78.00 - Pure hypercholesterolemia, unspecified Lipid Panel Today E78.00 - Pure hypercholesterolemia, unspecified Vitamin B12 and Folate Today E78.00 - Pure hypercholesterolemia, unspecified Free T4 (Free Thyroxine) Today E78.00 - Pure hypercholesterolemia, unspecified Vitamin D 25-OH Total Today E78.00 - Pure hypercholesterolemia, unspecified Referrals Podiatry Referral L84 - Corns and callosities
[2024-05-24 10:19] VITALS: BP 130/72; PULSE 72; TEMP 36.3; O2SAT 98; BMI 25.4
--- OUTSIDE RECORDS SUMMARY | 2024-05-24 12:03 | XMS_ITS | Encounter Summary ---
Author Organization [facility], Address [address] [place] [address] Phone Care Team Providers Care Correctional Program Officer Name Role Phone Waqar Reyez MD Primary Care Provider [phone] Encounter Details Date Type Department Care Team (Late st Contact Info) Description 05/06/2021 Documentation Only [facility], [address] [place] [address] Wil Lawson MD [address] [place] [id number] Social History Tobacco Use Types Packs/Day Years [...] on filedocumented in this encounter Care Teams Correctional Program Officer Relationship Specialty Start Date End Date Waqar Reyez MD [facility] [address] [place] PCP - General 01/25/19 documented as of this encounter
--- OUTSIDE RECORDS SUMMARY | 2024-05-24 12:03 | XMS_ITS ---
Author Organization [facility] Address [address] [place] [address] Care Team Providers Care Equine Pharmacology Technician Name Role Phone Po Waqar COELHO Primary Care Provider Joaquín Obrien [phone] REASON FOR VISIT screening PROBLEMS Problem Type ICD Code Onset Dates Problem Status W/U Status Risk SNOMED Code Notes Problem Diverticulosis of large intestine without perforation or abscess without bleeding (K57.30) Active confirmed Diverticul ar disease of colon (755282084) Encounters Encounter Location Date Provider Diagnosis [facility] [place] [address] [place], [place] [phone] 01/06/2024 Joaquín Biggs Colon cancer scree love [...]
--- OUTSIDE RECORDS SUMMARY | 2024-05-24 12:03 | XMS_ITS ---
Author Organization [facility] Address [address] [place] [address] Care Team Providers Care Pricing Intern Name Role Phone Po Waqar COELHO Primary Care Provider Joaquín Obrien [phone] ALLERGIES Allergen (clinical drug ingredient) Drug/Non Drug [...] screening (Z12.11) Active confirmed Colon cancer screening (084935587) Problem Encounter for other preprocedural examination (Z01.818) Active confirmed Pre-procedure evaluation check (601496196) VITAL SIGNS Blood pressure systolic 00 mm Hg 09/15/19 24 Blood pressure diastolic 00 mm Hg 024 Height 62.5 in 09/15/2023 Weight 146 lbs 09/15/2023 BMI 26.28 kg/m2 09/15/2023 Encounters Encounter Location Date Provider Diagnosis [facility] [address] [place] [address] 09/15/2023 Joaquín Biggs Colon cancer screeni ng [...]
--- OUTSIDE RECORDS SUMMARY | 2024-05-24 12:03 | XMS_ITS | Clinical Summary ---
Author Organization [facility], Address [address] [place] [address] Phone Care Team Providers Care Salesperson Wigs Name Role Phone Waqar Reyez MD Primary Care Provider [phone] Allergies No known active allergies Medications lisinopril [...] complete this topic Insurance [employer] Care Teams Salesperson Wigs Relationship Specialty Start Date End Date Waqar Reyez MD [facility] MD [address] [facility] [place] PCP - General 01/25/19
--- OUTSIDE RECORDS SUMMARY | 2024-05-24 12:03 | XMS_ITS | Encounter Summary ---
Author Organization [facility] Address [address] [place] [address] Phone Care Team Providers Care Cadmium Burner Name Role Phone Waqar Reyez MD Primary Care Provider [phone] Encounter Details Date Type Department Care Team (Late st Contact Info) Description 02/29/2020 Orders Only [facility] [address] [place] [address] Charlee Russ MD Chronic kidney [...] disorder documented in this encounter Care Teams Cadmium Burner Relationship Specialty Start Date End Date Waqar Reyez MD [facility] [place] [address] [place] PCP - General 01/25/19 documented as of this encounter
--- OUTSIDE RECORDS SUMMARY | 2024-05-24 12:04 | XMS_ITS | Patient Health Record ---
Author Organization [facility] Address [address] [place] [address] Care Team Providers Care Maintenance Service Dispatcher Name Role Phone Po Waqar COELHO Primary Care Provider Joaquín Obrien [phone] ALLERGIES Allergen (clinical drug ingredient) Drug/Non Drug [...] (Z12.11) Active confirmed Colon can cer screening (678338560) Problem Encounter for other preprocedural examination (Z01.818) Active confirmed Pre-procedure evaluation check (559919170) Problem Diverticulosis of large intestine without perforation or abscess without bleeding (K57.30) Active confirmed Diverticul ar disease of colon (012043308) VITAL SIGNS Blood pressure diastolic 00 mm Hg 09/15/2023 Height 62.5 in 09/15/2023 Blood pressure systolic 00 mm Hg 09/15/2023 Weight 146 lbs 09/15/2023 BMI 26.28 kg/m2 09/15/2023 Encounters Encounter Location Date Provider Diagnosis [facility] [place] [address] [place] [address] [place] [id number] 01/06/2024 Joaquín Biggs Colon cancer screeni ng Z12.11 ; Diverticulosis of large intestine without perforation or abscess without bleeding K57.30 and Other hemorrhoids K64.8 [facility] [address] [place] [address] 09/15/2023 Joaquín Biggs Colon cancer screeni ng [...] Insured Coverage Start Date Coverage End Date [facility] Insurance ([place]) P O [address] [id number] [employer] Self - patient is the insured MEDICAL (GENERAL) HISTORY Medical History History ICD Code Colonoscopy 07/11/2003---only a hyperpla stic polyp Left-sided breast cancer as below--follo wed by Dr. Kirkland-2000 HTN Denies CO,DM,CVA,Lung disease,renal dise ase Negative screening colonoscopy in 11/2013 Hyperlipidemia Surgical History Surgery Date(Month/Year) REBECA in 2001 Left-sided lumpectomy and ra diation treatment in for breast cancer--on Tamoxifen and Arimedex after that as well [place]
== END 2024-05-24 11:14 | disposition home or self-care (01) ==
PROVIDERS: PCP Internal Medicine; Visit Provider Internal Medicine
DX: Z00.00 Encounter for general adult medical examination without abnormal findings (principal); I10 Essential (primary) hypertension; E78.00 Pure hypercholesterolemia, unspecified; C50.919 Malignant neoplasm of unspecified site of unspecified female breast; D72.819 Decreased white blood cell count, unspecified; L84 Corns and callosities

== ENCOUNTER → 2024-05-24 10:10 | Outpatient (BNVA) | payer OTHER, SELFPAY | PROVIDERS: PCP Internal Medicine; Visit Provider Internal Medicine ==

== ENCOUNTER 2024-05-27 09:19 | Outpatient (REF) | payer OTHER, SELFPAY ==
[2024-05-27 09:43] LABS: MANUAL DIFF FLAG NO
--- OUTSIDE RECORDS SUMMARY | 2024-05-27 10:07 | XMS_ITS | Patient Health Record ---
Author Organization [facility] Address [address] [place] [address] Care Team Providers Care Dumpcart Driver Name Role Phone Po Waqar COELHO Primary Care Provider Joaquín Obrien [phone] Allergies Allergen (clinical drug ingredient) Drug/Non Drug Allergy documented on EMR Reaction Allergy Type Onset Date Status sensitivity to stron g medications (uncoded) Unknown Allergy Active Reason For Referral No Information Medications Medication SIG (Take, Route, Fr equency, Duration) Notes Start Date End Date Status Vitamin B Complex Ac tive Lisinopril 5 MG 1 tablet Orally Once a day Active Vitamin D 400 UNIT Orally A ctive Simvastatin 5 MG TAKE 1 TABLET BY ALVINA TH EVERYDAY AT BEDTIME Oral for 90 Active Problems Problem Type SNOMED Code ICD Code Onset Dates Problem Status W/U Status Risk Notes Problem Colon cancer screening (195413255) Colon cancer screening (Z12.11) Active confirmed Problem Pre-procedure evaluation check (007239334) Encounter for other preprocedural examination (Z01.818) Active confirmed Problem Diverticular disease of colon (138157214) Diverticulosis of large intestine without perforation or abscess without bleeding (K57.30) Active confirmed Vital Signs Blood pressure diastolic 00 mm Hg 09/15/2023 Height 62.5 in 09/15/2023 Blood pressure systolic 00 mm Hg 09/15/2023 Weight 146 lbs 09/15/2023 BMI 26.28 kg/m2 09/15/2023 Encounters Encounter Location Date Provider Diagnosis [facility] Outpatient [address] [place] [phone] 01/06/2024 Joaquín Biggs Colon cancer screeni ng Z12.11 ; Diverticulosis of large intestine without perforation or abscess without bleeding K57.30 and Other hemorrhoids K64.8 [facility] [address] [place] [address] 09/15/2023 Joaquín Biggs Colon cancer screeni ng Z12.11 and Encounter for other preprocedural examination Z01.818 Assessments Encounter Date Diagnosis (ICD Code) Assessment Notes Treatment Notes Treatment Clinical Notes Section Notes 01/06/2024 Colon cancer screening (ICD-10 - Z12.11) 01/06/2024 Diverticulosis of large intestine without perforation or abscess without bleeding (ICD-10 - K57.30) 09/15/2023 Colon cancer screening (ICD-10 - Z12.11) Overall, Anna appears quite well. Given her age, good clinical appearance, and last colonoscopy approaching the 10 year kirit, I did recommend a followup colonoscopy for further screening purposes. We did review the rationale for that in regard to colon cancer prevention. Full consent was obtained from her for this, including risks of bleeding and perforation. The procedure will be done with monitored anesthesia care. Anna was comfortable with this plan. Thank you again for allowing me to participate in Anna's care. I shall continue to keep you advised of her progress. 09/15/2023 Encounter for other preprocedural examination (ICD-10 - Z01.818) Overall, Anna appears quite well. Given her age, good clinical appearance, and last colonoscopy approaching the 10 year kirit, I did recommend a followup colonoscopy for further screening purposes. We did review the rationale for that in regard to colon cancer prevention. Full consent was obtained from her for this, including risks of bleeding and perforation. The procedure will be done with monitored anesthesia care. Anna was comfortable with this plan. Thank you again for allowing me to participate in Anna's care. I shall continue to keep you advised of her progress. 01/06/2024 Other hemorrhoids (ICD-10 - K64.8) Plan Of Treatment Future Test Test Name Order Date COLONOSCOPY 08/31/2013 COLONOSCOPY 09/15/2023 Insurance Providers Payer Name Payer Address Payer Phone Subscriber Number Group Number Insured Name Patient Relationship to Insured Coverage Start Date Coverage End Date [facility] Insurance ([employer]ov[employer]) [address] KAYLEIGH Anthony [id number] [phone] [id number] ANNA VIDES Self - patient is the insured Medical (General) History Medical History History ICD Code Colonoscopy 07/11/2003---only a hyperpla stic polyp Left-sided breast cancer as below--follo wed by Dr. Kirkland-2000 HTN Denies [place],DM,CVA,Lung disease,renal dise ase Negative screening colonoscopy in 11/2013 Hyperlipidemia Surgical History Surgery Date(Month/Year) REBECA in 2001 Left-sided lumpectomy and ra diation treatment in for breast cancer--on Tamoxifen and Arimedex after that as well Bunions
--- OUTSIDE RECORDS SUMMARY | 2024-05-27 10:07 | XMS_ITS ---
Author Organization [facility] Address [address] [place] [address] Care Team Providers Care Fourdrinier Operator Name Role Phone Po Waqar COELHO Primary Care Provider Joaquín Obrien [phone] REASON FOR VISIT screening Problems Problem Type SNOMED Code ICD Code Onset Dates Problem Status W/U Status Risk Notes Problem Diverticular disease of colon (123926880) Diverticulosis of large intestine without perforation or abscess without bleeding (K57.30) Active confirmed Encounters Encounter Location Date Provider Diagnosis [facility] [address] [place], [place] [phone] 01/06/2024 Joaquín Biggs Colon cancer scree love Z12.11 ; Diverticulosis of large intestine without perforation or abscess without bleeding K57.30 and Other hemorrhoids K64.8 Assessments Encounter Date Diagnosis (ICD Code) Assessment Notes Treatment Notes Treatment Clinical Notes Section Notes 01/06/2024 Colon cancer screening (ICD-10 - Z12.11) 01/06/2024 Diverticulosis of large intestine without perforation or abscess without bleeding (ICD-10 - K57.30) 01/06/2024 Other hemorrhoids (ICD-10 - K64.8) Plan Of Treatment No Information Progress Notes * HECTOR VIDES EDOB:[birth year] (73 yo F)Acc No.[id number]:01/06/2024 COLON WITH MAC Patient:?HECTOR VIDES Account Number: Provider:?Joaquín Biggs MD :1950???Age:73 Y???Sex:Female D ate:01/06/2024 Address:[address] [place] [id number] Pcp:Waqar Reyez MD Subjective: * Chief Complaints: * ???1. Screening. * Medical History:? Objective: * Vitals:? Assessment: * Assessment: 1.?Colon cancer screening - Z12.11 (Primary)???2.?Diverticulosis of large intestine without perforation or abscess without bleeding - K57.30???3.?Other hemorrhoids - K64.8??? Plan: * Treatment: * Procedure Codes:?14083 DIAGN OSTIC COLONOSCOPY * * The named appointment provid er may or may not be the originator of this progress note, and it is not deemed complete until electronically signed by the appointment provider. Sign off status: Pending * Provider:?Joaquín Biggs MD Date:? 024 Generated for Tony norris/David/eTransmitting on:?05/27/2024 10:06 AM EST
--- OUTSIDE RECORDS SUMMARY | 2024-05-27 10:07 | XMS_ITS | Encounter Summary ---
Author Organization [facility] Address [address] [place] [address] Phone Care Team Providers Care Order Takers Supervisor Name Role Phone Waqar Reyez MD Primary Care Provider [phone] Encounter Details Date Type Department Care Team (Late st Contact Info) Description 02/29/2020 Orders Only [facility] [address] [place] [address] Charlee Russ MD Chronic kidney [...] disorder documented in this encounter Care Teams Order Takers Supervisor Relationship Specialty Start Date End Date Waqar Reyez MD [facility] [address] [place] PCP - General 01/25/19 documented as of this encounter
--- OUTSIDE RECORDS SUMMARY | 2024-05-27 10:07 | XMS_ITS | Encounter Summary ---
Author Organization [facility], Address [address] [place] [address] Phone Care Team Providers Care Production Grip Name Role Phone Waqar Reyez MD Primary Care Provider [phone] Encounter Details Date Type Department Care Team (Late st Contact Info) Description 05/06/2021 Documentation Only [facility], [address] [place] [address] Wil Lawson MD [address] [place] [id number] Social History Tobacco Use Types Packs/Day Years [...] on filedocumented in this encounter Care Teams Production Grip Relationship Specialty Start Date End Date Waqar Reyez MD [facility] [address] [place] PCP - General 01/25/19 documented as of this encounter
--- OUTSIDE RECORDS SUMMARY | 2024-05-27 10:07 | XMS_ITS | Clinical Summary ---
Author Organization [facility], Address [address] [place] [address] Phone Care Team Providers Care Electrical Engineering Drafting Officer Name Role Phone Waqar Reyez MD Primary Care Provider [phone] Allergies No known active allergies Medications lisinopril [...] complete this topic Insurance [employer] Care Teams Electrical Engineering Drafting Officer Relationship Specialty Start Date End Date Waqar Reyez MD [facility] [place] [address] [facility] [place] PCP - General 01/25/19
--- OUTSIDE RECORDS SUMMARY | 2024-05-27 10:07 | XMS_ITS ---
Author Organization [facility] Address [address] [place] [address] Care Team Providers Care Yeast Cake Cutter Name Role Phone Po Waqar COELHO Primary Care Provider Joaquín Obrien [phone] Allergies Allergen (clinical drug ingredient) Drug/Non Drug Allergy documented on EMR Reaction Allergy Type Onset Date Status sensitivity to stron g medications (uncoded) Unknown Allergy Active REASON FOR VISIT Patient presents today for a colon screening Medications Medication SIG (Take, Route, Fr equency, Duration) Notes Start Date End Date Status Vitamin D 400 UNIT Orally A ctive Simvastatin 5 MG TAKE 1 TABLET BY ALVINA EVERYDAY AT BEDTIME Oral for 90 Active Vitamin B Complex Ac tive Lisinopril 5 MG 1 tablet Orally Once a day Active Problems Problem Type SNOMED Code ICD Code Onset Dates Problem Status W/U Status Risk Notes Problem Colon cancer screening (127859337) Colon cancer screening (Z12.11) Active confirmed Problem Pre-procedure evaluation check (143144740) Encounter for other preprocedural examination (Z01.818) Active confirmed Vital Signs Blood pressure systolic 00 mm Hg 09/15/19 24 Blood pressure diastolic 00 mm Hg 024 Height 62.5 in 09/15/2023 Weight 146 lbs 09/15/2023 BMI 26.28 kg/m2 09/15/2023 Encounters Encounter Location Date Provider Diagnosis [facility] [address] [place] [address] 09/15/2023 Joaquín Biggs Colon cancer screeni ng Z12.11 and Encounter for other preprocedural examination Z01.818 Assessments Encounter Date Diagnosis (ICD Code) Assessment Notes Treatment Notes Treatment Clinical Notes Section Notes 09/15/2023 Colon cancer screening (ICD-10 - [...] to keep you advised of her progress. Plan Of Treatment Future Test Test Name Order Date COLONOSCOPY 09/15/2023 Next Appt Details Follow Up: prn, Reason: Progress Notes * ANNA VIDES EDOB:[birth year] (73 yo F)Acc No.[id number]:09/15/2023 Progress Notes Patient:?ANNA VIDES Provider:?Joaquín Biggs MD :1950???Age:72 Y???Sex:Female D ate:09/15/2023 Address:[address] [place], [place] [phone] Pcp:Waqar Reyez MD Subjective: * Chief Complaints: * ???Patient presents today fo r a colon screening * HPI: ???incontinence:? I saw Anna in the office today for evaluation of colorectal cancer screening. ?I last saw Anna in November of 2013, at which time she underwent a negative screening colonoscopy. She presently feels very well. She enjoys a good appetite, without any significant heartburn or dysphagia. Her bowel movements are regular and without any signs of bleeding. She denies abdominal pain, jaundice, nor weight loss. She denies any known family history of colon cancer. * ROS:?General/Constitutional:?Change in appetite?denies.?Chills?denies.?Fatigue?denies.?Ophthalmologic:?Comments?all negative.?ENT:?Comments?all negative.?Respiratory:?hemoptysis?denies.?Cough?denies.?Cardiovascular:?Chest pain?denies.?Orthopnea?denies.?Gastrointestinal:?Comments?See HPI for details.?Genitourinary:?Hematuria?denies.?Dysuria?denies.?Musculoskeletal:?Painful joints?denies.?Weakness?denies.?Skin:?Itching?denies.?Rash?denies.?Neurologic:?Headache?denies.?Seizures?denies.?Psychiatric:?Comments?all negative.? * Medical History:? * Surgical History:?REBECA in 200 2 Left-sided lumpectomy and radiation treatment in 2000/2001 for breast cancer--on Tamoxifen and Arimedex after that as well Bunions * Hospitalization/Major Diagno stic Procedure:?No Hospitalization History. * Family History:?Father: dece ased, diagnosed with HTN (hypertension).?Mother: , diagnosed with HTN (hypertension).? No colorectal cancer. * Social History:?Tobacco Use:?Tobacco Use/Smoking?Are you a: nonsmoker.?Drugs/Alcohol:?Alcohol Screen?Points: 4, Interpretation: Positive.?Miscellaneous:?Marital status: Single. 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 ???Nonsmoker; 1 glass of wine QD. * Medications:?TakingVitamin B Complex Lisinopril 5 MG Tablet 1 tablet Orally Once a dayVitamin D 400 UNIT Capsule Orally Simvastatin 5 MG Tablet TAKE 1 TABLET BY MOUTH EVERYDAY AT BEDTIME Oral Taking Vitamin B Complex Taking Lisinopril 5 MG Tablet 1 tablet Orally Once a dayTaking Vitamin D 400 UNIT Capsule Orally Taking Simvastatin 5 MG Tablet TAKE 1 TABLET BY MOUTH EVERYDAY AT BEDTIME Oral DiscontinuedCalcium 1500 MG Tablet 1 tablet with food Orally Twice a dayCentrum Silver Tablet Orally MoviPrep 100 GM Solution Reconstituted as directed Orally as directedMedication List reviewed and reconciled with the patientDiscontinued Calcium 1500 MG Tablet 1 tablet with food Orally Twice a dayDiscontinued Centrum Silver Tablet Orally Discontinued MoviPrep 100 GM Solution Reconstituted as directed Orally as directedMedication List reviewed and reconciled with the patient * Allergies:?sensitivity to [facility] medicationsyes[Allergies Verified] Objective: * Vitals:?Wt: 146 lbs, Ht: 62. 5 in, BMI:26.28 Index, BP: 00/00 mm Hg. * Examination: ???General Examination: ?GENERAL APPEARANCE:?pleasant, well nourished, well developed, in no acute distress.?EYES:?sclera non-icteric.?ORAL CAVITY:?mucosa moist.?NECK/THYROID:?no cervical lymphadenopathy, neck supple.?SKIN:?nonjaundiced, no spider angiomata.?HEART:?S1, S2 normal.?LUNGS:?clear to auscultation bilaterally.?ABDOMEN:?normal bowel sounds, no guarding or rigidity, no guarding or rigidity, no masses palpable, soft, nontender, nondistended.?EXTREMITIES:?no edema.?NEUROLOGIC:?alert and oriented.? Assessment: * Assessment: 1.?Encounter for other prepr ocedural examination - Z01.818 (Primary)?2.?Colon cancer screening - Z12.11? Overall, Anna appears jose antonio te well. Given her age, good clinical appearance, and last colonoscopy approaching the 10 year kirit, I did recommend a followup colonoscopy for further screening purposes. We did review the rationale for that in regard to colon cancer prevention. Full consent was obtained from her for this, including risks of bleeding and perforation. The procedure will be done with monitored anesthesia care. Anan was comfortable with this plan. Thank you again for allowing me to participate in Anna's care. I shall continue to keep you advised of her progress. Plan: * Treatment: * Procedure Codes:?3017F COLOR ECTAL CA SCREEN DOC [id number] TOBACCO [id number] BP SCR NOT PRFRM REC REASON NOS * Preventive Medicine:? ??Counseling:?Care goal follow-up plan:?Above Normal BMI Follow-up?Giving encouragement to exercise,?BMI management provided?Yes.? ??Urinary Incontinence:?Urinary Incontinence?Assessment:?Absent,?Plan of care documented:?No, reason not specified.? * Follow Up:?prn * * Sign off status: Completed true * Provider:?Joaquín Biggs MD Date:? 024 Generated for Tony norris/David/Nicholasitting on:?05/27/2024 10:06 AM EST History and Physical Notes * HPI (History of Present Illness) Category Sub-Category Detail Notes Category Not es incontinence I saw Anna in the office today for evaluation of colorectal cancer screening. I last saw Anna in November of 2013, at which time she underwent a negative screening colonoscopy. She presently feels very well. She enjoys a good appetite, without any significant heartburn or dysphagia. Her bowel movements are regular and without any signs of bleeding. She denies abdominal pain, jaundice, nor weight loss. She denies any known family history of colon cancer. Examination Category Sub-Category Detail Notes Category Not es General Examination GENERAL APPEARANCE: pleasant , well [...]
[2024-05-27 10:30] LABS: Basophils Percent Auto 0.6 % (0-2); Eosinophils Percent Auto 1.2 % (0-4); Hematocrit 39.7 % (37.0-47.0); Imm Gran Abs Auto 0.01 X10*3/uL (0.00-0.03); Imm Gran Pct Auto 0.3 % (0.0-0.4); Lymphocytes Absolute Auto 0.7 X10*3/uL (1.2-4.9); Lymphocytes Percent Auto 19.9 % (20-40); Mean Corpuscular HGB Conc 32.7 g/dl (31.0-35.0); Mean Corpuscular Hemoglobin 28.2 pg (27.0-33.0); Mean Corpuscular Volume 86.1 fL (80.0-98.0); Mean Platelet Volume 9.9 fL (9.4-12.3); Monocytes Absolute Auto 0.3 X10*3/uL (0.1-1.2); Monocytes Percent Auto 9.8 % (2-11); Neutrophils Absolute Auto 2.4 x10*3/uL (2.0-8.3); Neutrophils Percent Auto 68.2 % (45-73); Platelet Count 241 X10*3/uL (160-400); Red Blood Count 4.61 X10*6/uL (4.20-5.50); Red Cell Distribution Width 12.9 % (11.0-16.0); White Blood Count 3.5 X10*3/uL (4.8-10.8)
[2024-05-27 11:24] LABS: Alanine Aminotransferase 20 U/L (0-31); Albumin Level 4.3 g/dL (3.5-5.0); Alkaline Phosphatase 75 U/L (39-117); Anion Gap 12 (12-20); Aspartate Amino Transferase 21 U/L (5-31); Bilirubin Total 0.5 mg/dL (0.0-1.0); Blood Urea Nitrogen 14 mg/dL (9-16); Calcium 9.7 mg/dL (8.4-10.2); Carbon Dioxide 27 mmol/L (22-29); Chloride 103 mmol/L (96-108); Cholesterol 201 mg/dL (<200); Estimated Glomerular Filt Rate > 60; Glucose Random 94 mg/dL (60-115); HDL Cholesterol 64 mg/dL (>40); LDL Cholesterol Calculated 122 mg/dL (<100); Potassium 4.4 mmol/L (3.3-5.1); Sodium 138 mmol/L (135-145); Total Protein 7.5 g/dL (6.5-8.0); Triglycerides 79 mg/dL (<150)
[2024-05-27 11:39] LABS: Folate 11.2 ng/mL (> or = 4.0); Vitamin B12 1004 pg/mL (200-900)
[2024-05-27 11:43] LABS: Free T4 (Free Thyroxine) 1.01 ng/dL (0.71-1.85); Thyroid Stimulating Hormone 1.47 uIU/mL (0.32-4.0); Vitamin D 25-OH Total 45.7 ng/mL (>30)
== END 2024-05-27 09:20 | disposition home or self-care (01) ==
LOC: HO.LAB 09:19
PROVIDERS: PCP Internal Medicine; Visit Provider Internal Medicine
DX: E78.00 Pure hypercholesterolemia, unspecified (principal)
CPT/HCPCS: 36415; 80053; 80061; 82306; 82607; 82746; 84439; 84443; 85025